=== PATIENT | female | born 1970 | race Caucasian/White ===

== ENCOUNTER 2017-07-10 00:03 | Inpatient (IN) | payer OTHER ==
[~2017-07-10] VITALS: Ht 161.2 cm; Wt 90.3 kg
[2017-07-10] VITALS (27 sets, daily range): BP systolic 70–127; BP diastolic 43–80; PULSE 53–112; RESP 14–22; O2SAT 92–100
[2017-07-10] MEDS ORDERED: Polyethylene Glycol (PEG) 17 Gm Powder PO PRN (01:20)
[2017-07-10] MEDS ORDERED: Alum-Mag Hydrox-Simeth 30 mL Suspension PO PRN (01:20)
[2017-07-10] MEDS ORDERED: Ondansetron 2 mg/mL 2 mL Inj IVPUSH PRN ×2 (01:20→08:10)
[2017-07-10] MEDS ORDERED: OXYC1TAB24 PO (01:25)
[2017-07-10] MEDS: 0.9% Sodium Chloride 1,000 ML IV SCH ×3 (01:31→21:19)
[2017-07-10 01:51] LABS: EOSINOPHILS % (AUTO) 0 % (0-5); Mean Corpuscular Hemoglobin 25.4 pg (27.0-35.0); Mean Corpuscular Volume 79.2 fL (81-100); Platelet Count 198 bil/L (150-400)
[2017-07-10 02:01] LABS: APPEARANCE,URINE SLIGHTLY CLOUDY (CLEAR,HAZY); COLOR,URINE DARK YELLOW (YELLOW)
[2017-07-10 02:03] LABS: OCCULT BLOOD,URINE MODERATE (NEGATIVE)
[2017-07-10 02:10] LABS: BASOPHILS % (AUTO) 0 % (0-3); MONOCYTES % (AUTO) 2 % (4-12); NEUTROPHILS % (AUTO) 92 % (40-74)
[2017-07-10 02:20] LABS: Magnesium 1.4 mg/dL (1.6-2.6)
--- NOTE | 2017-07-10 02:42 | PCM.HPMED ---
Subjective Date of Service Jul 10, 2017 Primary Provider: Admitting Physician: Adrian Bergman MD Primary Care Physician: Garrison Carpenter MD Attending Physician: Adrian Bergman MD Admit Status: Direct Admit, Full Admit Chief Complaint: Pyelonephritis. . History of Present Illness: Lynn Agudelo is a 47-year-old female with a past medical history significant for chronic back pain with opiate habituation and recurrent UTIs who is a direct admit from [facility] for pyelonephritis. The patient reports that for the last 2 days she has been experiencing fever, chills , and rigors. She also felt slightly nauseated today but denies emesis. She denies vision changes, congestion, sore throat, cough, chest pain, shortness of breath, vomiting, dysuria, diarrhea or constipation. She does endorse minor headache that has resolved, urinary hesitancy, and lower quadrant abdominal pain L> R. She reports that she has had recurrent UTIs with at least 2 a year up until 2-3 years ago. She had seen a urologist many years ago and had a voiding cystogram that did not reveal any anatomical abnormality to explain recurrent UTIs. Vital signs upon arrival: Temperature 36.5. Pulse 53. Respiratory rate 14. Blood pressure 96/54. Pulse ox 100% on room air. PCP is Dr. Garrison Carpenter. . Review of Systems: A comprehensive review of systems was conducted with the patient and found to be negative except as above in the History of Present Illness. . Allergies Coded Allergies: No Known Allergies (Unverified , 07/10/17) Home Medications Oxycodone 5 mg 1-2 tabs every 6 hours as needed for back pain. . PMH 1. Recurrent UTIs. 2. Bartholin's cyst. 3. Recently diagnosed nephrolithiasis. 4. Chronic back pain with opiate habituation. 5. Uterine fibroid evident on CT scan. 6. Recently diagnosed bacterial vaginosis. 7. Tobacco use disorder. . Surgical History 1. Liposuction with tummy tuck. . Family History Mother with hypertension, diabetes mellitus type II, and hypothyroidism. Brother with hypothyroidism. . Social History Hx Alcohol Use: No Hx Substance Use: No Hx Tobacco Use: Yes Smoking Status: Current Every Day Smoker (1 PPD 30+ years) Additional Information The patient is . She has no children. She was born in [facility] and raised in [place]. She is currently unemployed and on [employer]. She formerly worked as an insurance biller. . Exam Vital Signs Vital Sign - Last Date Time Temp Pulse Resp B/P Pulse Ox O2 Delivery O2 Flow Rate FiO2 07/10/17 01:10 36.5 53 14 96/54 100 Room Air Exam General: Middle-aged female lying in bed and in no acute distress, well- developed, well-nourished, appropriately interactive HEENT: Normocephalic, atraumatic. External ears without defect. Pupils equal, round, and reactive to light. Anicteric sclerae, moist conjunctivae, and no lid lag. Oropharynx free of erythema and cobble stoning with moist mucosa. Neck: Supple with full range of motion. No jugular venous distension. No bruits. No lymphadenopathy or thyromegaly. Cardiovascular: Regular rate and rhythm without murmurs, rubs, or gallops appreciated. Pulmonary: Clear to auscultation bilaterally without crackles, wheezes, or rhonchi. Normal respiratory effort with no use of accessory muscles. Abdomen: Soft, obese, mild tenderness to palpation in bilateral lower quadrants and suprapubic area, nondistended, bowel sounds present. Mild flank tenderness. No CVA tenderness. No hepatosplenomegaly or masses appreciated. Extremities: No clubbing, cyanosis, or edema. Skin: Normal temperature, turgor, and texture; no rash, ulcers, or subcutaneous nodules appreciated. Neurological: Cranial nerves grossly intact. Normal muscle strength, tone, and bulk. Reflexes, coordination, and sensory function within normal limits. No known gait impairment. Psychiatric: Normal mood and affect. Alert and oriented to person, place, and time. . Lab and Diagnostics Labs [facility] lab workup: WBC 15.7 Hemoglobin 12.8 Hematocrit 38.8 Platelets 254 PMNs 70% Glucose 106 BUN 12 Creatinine 1.3 GFR 46.4 Sodium 136 Potassium 3.4 Chloride 103 Carbon dioxide 21 Calcium 8.5 Total protein 6.5 Albumin 2.8 Total bilirubin 0.4 Alkaline phosphatase 78 AST 15 ALT 16 Procalcitonin and 3.1 Lactic acid 1.7 Urinalysis: nitrate negative, blood 2+, leukocyte esterase positive, RBCs 10-25 , WBCs 25-50, epithelial cells 10-15, urine bacteria many, Trichomonas present, culture indicated. . X-Rays, CTs and MRIs CT abdomen and pelvis with contrast performed at [facility]: 1. Partially obstructed pyelonephritis in the left renal upper pole. An 8 mm calculus is at the left upper pole uteropelvic junction. 2. 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 Distal extent of the duplication is not seen. 3. Focal 3 cm area of cortical hypodensity suspicious for renal phlegmon or renal abscess. 4. Enlarged, lobulated fibroid uterus. 5. Mildly enlarged ovaries with multicystic appearance to the right ovary. Further evaluation with pelvic ultrasound is recommended once the patient's acute illness has resolved. 6. Compressed urinary bladder with a diffusely thickened wall consistent with known history of cystitis. 7. Nonenhancing left labial fluid collection correlate with physical exam. Dictated by: Romina Ortega M.D. at 1999 07/09/2017 XR chest 2 view performed at [facility]: 1. Atelectasis and/or scarring left lateral lower lung. Underlying infection less likely but not entirely excluded. Correlate with auscultated findings. Dictated by: Romina Ortega M.D. at 0536 07/09/2017 . Assessment & Plan Lynn Agudelo is a 47-year-old female with a past medical history significant for chronic back pain with opiate habituation and recurrent UTIs who is a direct admit from [facility] for pyelonephritis. 1. Acute severe sepsis due to pyelonephritis with possible phlegmon secondary to nephrolithiasis, present on admission. Active. - Patient presented with fever, chills, rigors and nausea with leukocytosis with bandemia, lactic acidosis and mildly hypotensive. - Early goal-directed therapy met including: Broad-spectrum IV antibiotics and early fluid resuscitation. - Initial lactic acid at [facility] was normal at 1.7. Repeat upon admission was 2.5. Continue repeat lactic acid and total under 2.0. - Hypotension is fluid responsive. 2. Acute pyelonephritis with possible phlegmon secondary to nephrolithiasis, present on admission. Active. - Patient presented with fever, chills, rigors and nausea with leukocytosis and mildly hypotensive. - CT abdomen and pelvis with contrast performed at [facility] demonstrated partially obstructed pyelonephritis in the left renal upper pole with an 8 mm calculus is at the left upper pole uteropelvic junction, duplicated left intrarenal collecting system and proximal to mid left ureter. Distal extent of the duplication is not seen and focal 3 cm area of cortical hypodensity suspicious for renal phlegmon or renal abscess, as above. - The patient received 2 L of NS at [facility]. Ordered an additional 1 L NS bolus and will continue IV fluid hydration with NS at 100 mL/hr. - Initial lactic acid normal at 1.7 at [facility]. - Initial Pro calcitonin 3.1 at [facility]. Continue to trend. - Ordered oxycodone 5-325 mg 1-2 tabs every 6 hours as needed for pain. - Ordered blood cultures 2 and urine culture, pending. Obtain blood and urine cultures from [facility] once they are resulted. - The patient received levofloxacin, metronidazole, and ceftriaxone at [facility]. Continue ceftriaxone 2 g every 24 hours and metronidazole PO 500 mg twice a day 7 days. - Dr. Kaur of urology has been consulted and will plan to see the patient tomorrow morning. 3. Acute kidney injury on chronic kidney disease, present on admission. Active. - Unclear patient's baseline creatinine. Initial creatinine 1.3 at [facility]. - Avoid nephrotoxins. - Ordered IV fluid hydration with NS at 100 mL/hr. 4. Acute bacterial vaginosis, present on admission. Active. - Patient received metronidazole at [facility]. Continue metronidazole PO 500 mg twice a day 7 days. Chronic problems: 5. Chronic back pain with opiate habituation, present on admission. Stable. - Continue oxycodone 5-325 mg 1-2 tabs every 6 hours as needed for pain. 6. Tobacco use disorder, presently on admission. Stable. - Counseled the patient on smoking cessation. - Provided the patient a nicotine patch PRN for nicotine withdrawal. PRN antiemetics: Zofran and Maalox. PRN bowel regimen: Senna and MiraLAX. PRN analgesics: Tylenol and oxycodone. Patient is admitted under inpatient status with expected length of stay greater than 2 midnights due to severity of presenting symptoms, risk of adverse event, and complexity of treatment plan. . VTE Prophylaxis: Sub-Q Heparin (Unfractionated) Resuscitation Status: CPR: Attempt Resuscitation Attending Statement The patient was seen and examined together with Dr. Hendrickson on 07/10 and I agree with the history, exam and plan as outlined in the note above. Lisa Hendrickson DO Jul 10, 2017 01:14 Adrian Bergman MD Jul 10, 2017 03:16
[2017-07-10] MEDS ORDERED: 0.9% Sodium Chloride 1,000 ML IV ONE ×2 (02:50→05:05)
[2017-07-10] MEDS: cefTRIAXone Inj 2,000 MG in Dextrose 5% Minibag Plus 50 ML IV SCH (03:22)
[2017-07-10] MEDS ORDERED: Magnesium Sulf 2 Gm/50mL Water 2 GM in IV Premix 1 EACH IV ONE (05:05)
[2017-07-10] MEDS: oxyCODONE-Acetamin 5-325 mg Tablet PO PRN ×3 (05:08→21:00)
[2017-07-10] MEDS: Heparin 5,000 Unit/mL Inj SUBQ SCH ×2 (07:54→16:30)
[2017-07-10] MEDS ORDERED: Ondansetron 2 mg/mL 2 mL Inj ONE (08:00)
[2017-07-10] MEDS ORDERED: Dexamethasone 4 mg/mL Inj ONE (08:00)
[2017-07-10] MEDS ORDERED: Propofol 10,000 mCg/mL 20 mL Inj ONE (08:00)
[2017-07-10] MEDS ORDERED: Phenylephrine/NS 100 mCg/mL 10 mL Syringe IVPUSH ONE (08:00)
[2017-07-10] MEDS ORDERED: Labetalol 5 mg/mL 4 mL Inj IV PRN (08:10)
[2017-07-10] MEDS ORDERED: Lactated Ringer's 500 ML IV PRN (08:10)
[2017-07-10] MEDS ORDERED: hydrALAZINE 20 mg/mL Inj IVPUSH PRN (08:10)
[2017-07-10] MEDS ORDERED: Dexamethasone 4 mg/mL Inj IVPUSH PRN (08:10)
[2017-07-10] MEDS ORDERED: MetoCLOpramide 5 mg/mL 2 mL Inj IVPUSH PRN (08:10)
[2017-07-10] MEDS ORDERED: HYDROmorphone 1 mg/mL Inj IVPUSH PRN (08:10)
[2017-07-10] MEDS ORDERED: Lactated Ringer's 1,000 ML IV SCH (08:10)
[2017-07-10] MEDS ORDERED: fentaNYL-PF 50 mCg/mL 2 mL Inj IVPUSH PRN (08:10)
--- NOTE | 2017-07-10 08:53 | PCM.PNSURG ---
Subjective Date of Service: Jul 10, 2017 Date of Service: Jul 10, 2017 Visit Information: Reason for Visit Sepsis/Pyelonephritis Surgery/Surgery Date Post-Op Day # Date of Admission: Jul 10, 2017 at 01:11 Hospital Day # Objective Vital Sign- Last 8 Hours Date Time Temp Pulse Resp B/P Pulse Ox O2 Delivery O2 Flow Rate FiO2 07/10/17 07:44 37.7 85 18 101/64 98 Room Air 07/10/17 06:10 37.1 86 14 93/52 99 Room Air 07/10/17 04:53 79 07/10/17 03:16 85 90/51 07/10/17 02:42 37.0 81 16 81/57 99 Room Air 07/10/17 01:10 36.5 53 14 96/54 100 Room Air Intake and Output- Last 8 Hour 07/10/17 Cumulative From/Thru 07:00 07/10/17 01:48 - 07/10/17 06:59 Intake Total 2181 ml 2181 ml Output Total 570 ml 570 ml Balance 1611 ml 1611 ml Intake Oral 100 ml 100 ml IV Total 2081 ml 2081 ml Output Urine Total 470 ml 470 ml Stool Total 100 ml 100 ml Result Diagram: 07/10/17 0140 07/10/17 0140 Assessment & Plan Plan Pt imaging report reviewed- actual images unavailable to view at present, radiology working on this. History, PE and relevant labs reviewed. Discussed plan with patient. will plan to take to OR later today for L JJ stent placement UTI/Pyelo medical management per hospitalist service. after stent placement would not treat stone until at least 7-10 days to allow for passive ureteral dilation and after bacteriuria/pyelonephritis treated. Most likely this will be outpatient procedure and we will arrange f/u prior to patient d/c. Patient understands the plan and the rationale Full consult note to follow thank you for allowing us to participate in this patient's care VTE Prophylaxis: Sub-Q Heparin (Unfractionated) Resuscitation Status: CPR: Attempt Resuscitation Spring Kaur MD Jul 10, 2017 08:53
[2017-07-10] MEDS ORDERED: Albuterol-Ipratropium 3 mL Inhalation Solution NEB PRN (10:15)
[2017-07-10] MEDS ORDERED: Acetaminophen IV 1,000 MG in IV Premix 1 EACH IV ONE (10:20)
--- NOTE | 2017-07-10 10:40 | NUR ---
fever/rigors Pt developed fever 37.5 with shaking chills/rigors, mild back pain. HR 140 RR 36, States feeling anxious. Pt unable to swollow PO tylenol at this time. IV tylenol and 1 mg IV dilaudid given, RT here and given neb to help with breathing. Pt states starting to feel better, more calm, now resting quietly with HR 100-107 and RR 24.
--- NOTE | 2017-07-10 15:00 | NUR ---
To OR pt alert and oriented, planned for urology procedure. pt transported via gurney. . mathematics technician informed of departure. pt departed unit at 1500.
--- NOTE | 2017-07-10 15:14 | NUR ---
Social Work Note: Initial Assessment Data& Assessment: EMR Reviewed. SERVICES MANAGER met with pt at bedside to discuss discharge Planning, SW role explained. Discharge Planning Checklist provided. Lynn Agudelo is a 47 year old female admitted on 07/10/2017 for sepsis/pyelonephritis. Per MD, the medical team is ruling out potential stent placement. No MD orders identified at this time. Pt has [employer] insurance coverage and sees Garrison Cardoza MD for primary care. Pt lives in [place] and is independent at baseline with ADL's. MD does not identify any concerns with pt capacity for self care at this time. Pt does not use any DME at baseline and does not have HH or SNF hx. Pt does not have LTC insurance or VA benefits. Pt provided with DPOA/AD paperwork to review and complete when possible. Pt denies any needs at this time. SERVICES MANAGER to follow for MD orders or pt needs if they arise. Plan: Anticipated discharge home via POV when medically ready. Pt denies any needs at this time. SERVICES MANAGER to follow for MD orders or pt needs if they arise. ELEANOR Salazar Addendum: 07/10/17 at 1518 by RICKY VAN Amended: Links added.
[2017-07-10] MEDS ORDERED: Lactated Ringer's 1,000 ML IV ONE ×2 (15:18→16:30)
--- NOTE | 2017-07-10 15:57 | PCM.HPANE ---
Patient Data Date of Service: Jul 10, 2017 Surgeon Admitting Provider:Adrian Bergman MD Attending Provider:Jojo Lamar DO Primary Care Physician:Garrison Carpenter MD Other Provider: Reason for Visit Sepsis/Pyelonephritis Ht/WT & BMI Height (Feet): 5 Height (Inches): 3.45 Weight (Kilograms): 81.600 Body Mass Index 31.48 Allergies Coded Allergies: No Known Allergies (Unverified , 07/10/17) Past Anesthesia History Anesthesia History: Denies:: Anesthesia Reactions Diabetes History Hx Diabetes?: No MRSA MRSA: No Medications Home Meds Incl Beta Mata: No Reported Medications oxyCODONE-Acetaminophen 5-325 mg 1 Each Tablet1-2 Tab PO Q6H PRN For Pain Ref 0 07/10/17 History History of ENT Problems?: No HEENT History: Denies:: Abnormal Airway Cataracts Difficult Intubation Dysphagia Glaucoma Hearing Problem Sinus Problem TMJ Denture Type: None Teeth Condition: Within Normal Limits Hx of Heart Problems?: No Cardiovascular History: Denies:: AICD Abdominal Aortic Aneurism Atrial Fibrillation Cardiac Surgery Chest Pain Congestive Heart Failure Coronary Artery Disease Edema Heart Murmur Hypertension Irregular Heartbeat Pacemaker Peripheral Vascular Rheumatic Fever Thrombophlebitis Valvular Heart Disease Hx of Respiratory Problem?: No Respiratory History: Denies:: Asthma COPD Chest Surgery Cough Dyspnea Emphysema Hemoptysis Oxygen Administration Pneumonia Pulmonary Embolism Tuberculosis Use of C-PAP Machine Use of Inhalers / NEBS Hx Neurologic Problems?: No Neurological History: Positive for:: Seizures (once at age 6 after traumatic neck injury) Hx of GI Problems?: No Hx of Problems?: Yes Genitourinary History: Positive for:: Urinary Tract Infection (chronic UTIs until 30's) Female Hx: Denies:: Currently Endometriosis Pelvic Inflammatory Problems with Breasts? Hx Musculoskeletal Problems?: Yes Musculoskeletal History: Positive for:: Back Injury (work injury ) Musculoskeletal Trauma (L ankle ORIF and bilat radial hairline fx ) Denies:: Joint Replacement Hx of Psycho/Social Problems?: No Hx Surgeries?: Yes (lipo/tummy tuck at age 25) Hx Any Other Health Problems?: No Other History: Denies:: Cancer Hospitalization Thyroid Disease History Blood Transfusions: Positive for:: Accept Blood Products? Blood Transfusions Denies:: Blood Transfuse Reaction Hx Diabetes: No Hx Alcohol Use: NoAlcoholic Drinks Per Day: 0Hx Substance Use: No Smoking Status: Current Every Day Smoker (1 PPD 30+ years) Have You Smoked inLast 12 mo: YesApprox How Many Cigarettes/day: 20 Stop/Bang Treated for Sleep Apnea?: No Do You Have a CPAP Machine?: No S-Snoring: Do You Snore Loudly: Yes T-Tired: feel tired, fatigued: Yes O-Obsered: Observed not breath: Yes P-Blood Pressure: treated: Yes B- Body Mass Index > 35 kg/m2: Yes A- Age over 50: No N- Neck Large Circumference: No G- Gender Male: No ISIDORO Total Score: 6 ISIDORO Risk Assessment: High Risk, =/>3 Yes ISIDORO Category 1: Yes Risk Assessment Category Category 1A: Patient has history of documented sleep apnea, and HAS NOT received any narcotic, sedative or anesthesia administration during this stay. Category 1B: Patient has history of documented sleep apnea, and HAS received any narcotic , sedative or anesthesia administration during this stay Category 2: Patient has SUSPECTED Obstructive Sleep Apnea, and HAS received any narcotic , sedative or anesthesia administration during this stay. Category 3: Patient has SUSPECTED Obstructive Sleep Apnea and HAS NOT received narcotic, sedative or anesthesia administration during this stay. Category 4: Outpatient in Procedural Areas with known sleep apnea or who screen positive for High Risk via the STOP/BANG questionnaire. Exam Exam Vital Signs Vital Signs Date Time Temp Pulse Resp B/P Pulse Ox O2 Delivery O2 Flow Rate FiO2 07/10/17 11:50 106/63 07/10/17 11:46 37.1 07/10/17 11:16 39.5 112 18 127/80 92 Room Air General Appearance: Alert, Oriented X3, Cooperative, No Acute Distress HEENT/AIRWAY: MP 2 Lungs: Clear to Auscultation, Normal Air Movement Heart: Exam Unremarkable, Regular Rate/Rhythm, No Murmurs/Rubs/Gallops Meds/Labs/Diagnostics Admission Meds Current Medications Heparin Sodium (Porcine) 5000 unit 5,000 unit Q8 SUBQ Last administered on 07/10 07:54; Start 07/10/17 at 08:30 Sodium Chloride (Normal Saline) 1,000 ml @ 100 mls/hr Q10H IV Last administered on 07/10/17 01:31; Start 07/10/17 at 01:18 Metronidazole HCl 500 mg 500 mg Q12 PO Last administered on 07/10/17 07:53; Start 07/10/17 at 08:30 Ceftriaxone Sodium 2000 mg/ Dextrose/Water 50 ml @ 100 mls/hr Q24H IV Last administered on 07/10/17 03:22; Start 07/10/17 at 02:30 Sodium Chloride (Normal Saline) 1,000 ml @ 0 mls/hr Q0M ONCE IV Last administered on 07/10/17 02:51; Start 07/10/17 at 02:50; Stop 07/10/17 at 02:54 ; Status DC Nicotine 1 patch 1 patch DAILY TOPICAL Last administered on 07/10/17 07:54; Start 07/10/17 at 03:00 Sodium Chloride 1,000 ml @ 0 mls/hr Q0M ONCE IV Last administered on 05:07; Start 07/10/17 at 05:05; Stop 07/10/17 at 05:07; Status DC Magnesium Sulfate 2 gm/Premix 50 ml @ 50 mls/hr ONCE ONCE IV Last administered on 07/10/17 05:30; Start 07/10/17 at 05:05; Stop 07/10/17 at 06:04 ; Status DC Lactated Ringer's 1,000 ml @ 120 mls/hr Q8H20M IV Last administered on 13:28; Start 07/10/17 at 08:10; Stop 07/10/17 at 16:09 Acetaminophen 1000 mg/Premix 100 ml @ 400 mls/hr ONCE ONCE IV Last administered on 07/10/17 10:34; Start 07/10/17 at 10:20; Stop 07/10/17 at 10:34 ; Status DC Lactated Ringer's (Lr) 1,000 ml @ ud STK-MED ONCE IV Last administered on 07/10 15:18; Start 07/10/17 at 15:18; Stop 07/10/17 at 15:41; Status DC Labs Test 07/10/17 01:40 07/10/17 07:26 White Blood Count 13.7th/mm3 (3.8-10.1) Red Blood Count 4.48mil/mm3 (3.90-5.20) Hemoglobin 11.4g/dL (12.0-15.6) Hematocrit 35.5% (35.0-46.0) Mean Corpuscular Volume 79.2fL (81-100) Mean Corpuscular Hemoglobin 25.4pg (27.0-35.0) Mean Corpuscular Hemoglobin Concent 32.1% (32.0-37.0) Red Cell Distribution Width 15.7% (12.3-15.4) Platelet Count 198bil/L (150-400) Neutrophils (%) (Auto) 92% (40-74) Lymphocytes (%) (Auto) 2% (14-46) Monocytes (%) (Auto) 2% (4-12) Eosinophils (%) (Auto) 0% (0-5) Basophils (%) (Auto) 0% (0-3) Band Neutrophils % 4% (1-5) Hematology Comments Urine Color Dark yellow (YELLOW) Urine Appearance Slightly cloudy Urine pH 5.0 (5.0-8.0) Urine Specific [place] >1.050 (1.003-1.035) Urine Protein Tracemg/dL (NEG,TRACE) Urine Glucose (UA) Negativemg/dL (NEGATIVE) Urine Ketones Negativemg/dL (NEGATIVE) Urine Occult Blood Moderate (NEGATIVE) Urine Nitrite Negative (NEGATIVE) Urine Bilirubin Negative (NEGATIVE) Urine Urobilinogen 1.0mg/dL (NORMAL) Urine Leukocyte Esterase Negative (NEGATIVE) Urine RBC 0-2/hpf (0-2) Urine WBC >50/hpf (0-5) Urine Epithelial Cells Moderate/hpf (NONE-MOD) Urine Crystals None seen (NONE SEEN) Urine Bacteria Few/hpf (NONE-FEW) Urine Hyaline Casts None/lpf (NONE) Urine Granular Casts None seen (NONE SEEN) Urine Waxy Casts None seen (NONE SEEN) Urine Red Blood Cell Casts None seen (NONE SEEN) Urine White Blood Cell Casts None seen (NONE SEEN) Urine Mucus None seen (None Seen) Urine Trichomonas None seen (NONE SEEN) Urine Yeast None (NONE SEEN) Urinalysis Comment None Urine Culture Reflexed Indicated Sodium Level 136mEq/L (134-144) Potassium Level 3.8mEq/L (3.5-5.2) Chloride Level 103mEq/L (97-108) Carbon Dioxide Level 19mmol/L (18-29) Blood Urea Nitrogen 11mg/dL (6-24) Creatinine 1.19mg/dL (0.57-1.00) Estimat Glomerular Filtration Rate 69mL/min (>59) Glucose Level 110mg/dL (60-99) Calcium Level 8.0mg/dL (8.5-10.1) Magnesium Level 1.4mg/dL (1.6-2.6) Total Bilirubin 0.3mg/dL (0.0-1.2) Aspartate Amino Transf (AST/SGOT) 16U/L (0-50) Alanine Aminotransferase (ALT/SGPT) 13U/L (0-32) Alkaline Phosphatase 72U/L (25-150) Total Protein 6.0g/dL (6.4-8.4) Albumin 2.9g/dL (3.4-5.0) Procalcitonin 1.81ng/mL (0.00-0.08) Hold Bueno Top Tube Received (Received) Lactic Acid Level 2.6mmol/L (0.4-2.0) Plan Impression Patient chart reviewed, patient interviewed and anesthestic plan with risks, benefits, and alternatives discussed, and informed consent obtained. NPO per Anesth. Guidelines: Yes ASA Physical Status: ASA2 Mod Systemic Disease Anesthetic Plan: GA Bene/Risks/Altern/Consents: Yes HP Complete Prior to Induction: Yes Carter Silveira MD Jul 10, 2017 15:57
--- NOTE | 2017-07-10 16:04 | PCM.SURGPO ---
Immediate Operative Note Date of Surgery: Jul 10, 2017 Pre Operative Diagnosis upper pole obstructed pyelonephritis with stone Post Operative Diagnosis same Procedure L RPG, L JJ stent placement (upper pole moeity) Surgeon and Unit Reactor Operator Surgeon: Vincent Assistants: None Findings partial ureteral dulication with obstructed upper pole moeity Purulent drainage post de-obstruction 6x26cm JJ stent in place no string U culture sent post deobstruction Complications There were no periprocedural complications identified. Surgical Specimen Removed: No Specimen sent to Pathology: No Anesthetic Administered: GA Grafts, Implants: Implants-See Implant Record Output, Estimated Blood Loss: 3 Blood Admin during surgery: No Spring Kaur MD Jul 10, 2017 16:04
--- NOTE | 2017-07-10 16:06 | PCM.PNMED ---
Subjective Date of Service Jul 10, 2017 Subjective Lynn Agudelo is a 47-year-old female with a past medical history significant for chronic back pain with opiate habituation and recurrent UTIs who is a direct admit from [facility] for pyelonephritis. Nursing reports patient had no acute events overnight. Patient seen and examined. Sitting up in bed comfortably. C/o mild chills, mild lower ABD pain, and nausea. Denies any CP, SOB, Vomiting, Diarrhea, or Headaches. Has had some urine output since admission, and has had a bowel movement in the last 24 hours. ROS reviewed and is otherwise negative unless noted above. @ roughly 1040, patient began to actively have chills and rigors. Temperature reached a max of 39.5. Lower ABD pain continued. Patient was given 1g of Acetaminophen IV with resolution of fever. Exam Vital Signs Vital Sign - Last Date Time Temp Pulse Resp B/P Pulse Ox O2 Delivery O2 Flow Rate FiO2 07/10/17 11:50 106/63 07/10/17 11:46 37.1 07/10/17 11:16 112 18 92 Room Air Intake and Output 07/09/17 07/09/17 07/10/17 Cumulative From/Thru 15:00 23:00 07:00 07/10/17 01:48 - 07/10/17 06:59 Intake Total 2181 ml 2181 ml Output Total 570 ml 570 ml Balance 1611 ml 1611 ml Intake Oral 100 ml 100 ml IV Total 2081 ml 2081 ml Output Urine Total 470 ml 470 ml Stool Total 100 ml 100 ml Exam Constitutional: Awake and Alert and Oriented x4. No acute distress. Head: normocephalic and atraumatic. Eyes: EOMI. [place] conjunctiva. Pupils equal round and reactive to light. Heart: Regular rate and rhythm. No murmur. No peripheral edema. Lungs: Clear to auscultation. No wheeze. rales or rhonchi. ABD: soft. diffuse lower ABD tenderness and suprapubic tenderness. Bowel sounds present throughout. Musculoskeletal: moves all four extremities appropriately. Skin: warm, diaphoretic, no rash. Neuro: CN II-XII intact. no focal deficits. Psych: anxious, but appropriate mood and affect. IVs and Medications IV Fluids 1L NS in the last 24 hours. Medications Reviewed: Medications were reviewed in detail Medications High Risk IV Medications: Ceftriaxone Lab and Diagnostics Item Value Date Time Red Blood Count 4.48 mil/mm3 07/10/17139 Mean Corpuscular Volume 79.2 fL L 07/10/17139 Mean Corpuscular Hemoglobin 25.4 pg L 07/10/17139 Mean Corpuscular Hemoglobin Concent 32.1 % 07/10/17139 Red Cell Distribution Width 15.7 % H 07/10/17 014 Neutrophils (%) (Auto) 92 % H 07/10/17139 Lymphocytes (%) (Auto) 2 % L 07/10/17139 Monocytes (%) (Auto) 2 % L 07/10/17139 Eosinophils (%) (Auto) 0 % 07/10/17139 Basophils (%) (Auto) 0 % 07/10/17139 Band Neutrophils % 4 % 07/10/17139 Lactic Acid Level 2.5 mmol/L H 07/10/17139 Lactic Acid Level 2.3 mmol/L H 07/10/17 0510 Lactic Acid Level 2.6 mmol/L H 07/10/17 0726 Procalcitonin 1.81 ng/mL H 07/10/17139 Estimat Glomerular Filtration Rate 69 mL/min 07/10/17139 Calcium Level 8.0 mg/dL L 07/10/17139 Magnesium Level 1.4 mg/dL L 07/10/17139 Aspartate Amino Transf (AST/SGOT) 16 U/L 07/10/17 014 Total Bilirubin 0.3 mg/dL 07/10/17139 Alanine Aminotransferase (ALT/SGPT) 13 U/L 07/10/17139 Alkaline Phosphatase 72 U/L 07/10/17139 Total Protein 6.0 g/dL L 07/10/17139 Albumin 2.9 g/dL L 07/10/17139 Result Diagram: 07/10/1713907/10/17139 Microbiology Blood Cultures pending X-Rays, CTs and MRIs CT abdomen and pelvis with contrast performed at [facility]: 1. Partially obstructed pyelonephritis in the left renal upper pole. An 8 mm calculus is at the left upper pole uteropelvic junction. 2. 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 Distal extent of the duplication is not seen. 3. Focal 3 cm area of cortical hypodensity suspicious for renal phlegmon or renal abscess. 4. Enlarged, lobulated fibroid uterus. 5. Mildly enlarged ovaries with multicystic appearance to the right ovary. Further evaluation with pelvic ultrasound is recommended once the patient's acute illness has resolved. 6. Compressed urinary bladder with a diffusely thickened wall consistent with known history of cystitis. 7. Nonenhancing left labial fluid collection correlate with physical exam. Dictated by: Romina Ortega M.D. at 2308 07/09/2017 XR chest 2 view performed at [facility]: 1. Atelectasis and/or scarring left lateral lower lung. Underlying infection less likely but not entirely excluded. Correlate with auscultated findings. Dictated by: Romina Ortega M.D. at 1250 07/09/2017 . Assessment & Plan Lynn Agudelo is a 47-year-old female with a past medical history significant for chronic back pain with opiate habituation and recurrent UTIs who is a direct admit from [facility] for pyelonephritis. Acute severe sepsis due to pyelonephritis with possible phlegmon secondary to nephrolithiasis, present on admission. Active. - Patient presented with fever, chills, rigors and nausea with leukocytosis with bandemia, lactic acidosis and mildly hypotensive. - Early goal-directed therapy met including: Broad-spectrum IV antibiotics and early fluid resuscitation. - Initial lactic acid at [facility] was normal at 1.7. Most recent was 2.6 on 07/10 - Hypotension is fluid responsive. Continue IVF. - 250cc bolus PRN hypotension. Acute pyelonephritis with possible phlegmon secondary to nephrolithiasis, present on admission. Active. - Patient presented with fever, chills, rigors and nausea with leukocytosis and mildly hypotensive. 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 Distal extent of the duplication is not seen and focal 3 cm area of cortical hypodensity suspicious for renal phlegmon or renal abscess, as above. -continue IV fluid hydration with NS at 100 mL/hr. - Initial Pro calcitonin 3.1 at [facility]. Continue to trend. - Ordered oxycodone 5-325 mg 1-2 tabs every 6 hours as needed for pain. - Ordered blood cultures 2 and urine culture, pending. Obtain blood and urine cultures from [facility] once they are resulted. - Continue ceftriaxone 2 g every 24 hours and metronidazole PO 500 mg twice a day 7 days. - Dr. Kaur took patient to surgery for L JJ stent placement and plan for treatment of stone at least 7-10 days afterwards. Continue to treat bacteriuria /pyelonephritis. Acute kidney injury on chronic kidney disease, present on admission. Active. - Unclear patient's baseline creatinine. Initial creatinine 1.3 at [facility]. - Avoid nephrotoxins. - Ordered IV fluid hydration with NS at 100 mL/hr. Acute bacterial vaginosis, present on admission. Active. -Continue metronidazole PO 500 mg twice a day 7 days. Chronic problems: Chronic back pain with opiate habituation, present on admission. Stable. - Continue oxycodone 5-325 mg 1-2 tabs every 6 hours as needed for pain. Tobacco use disorder, presently on admission. Stable. - Counseled the patient on smoking cessation. - Continue nicotine patch PRN for nicotine withdrawal. PRN antiemetics: Zofran and Maalox. PRN bowel regimen: Senna and MiraLAX. PRN analgesics: Tylenol and oxycodone. Disposition: Patient is currently being treated for pyelonephritis and is post op day 0 for a ureter stent placement. Patient's blood pressure is being controlled with IVF to prevent hypotensive shock secondary to infection. Length of stay is uncertain at this time. VTE Prophylaxis: Sub-Q Heparin (Unfractionated) Resuscitation Status: CPR: Attempt Resuscitation Attending Statement The patient was seen and examined together with Dr. Carolina on 07/10/17 and I agree with the history, exam and plan as outlined in the note above. Derick Carolina DO Jul 10, 2017 16:06 Jojo Lamar DO Jul 11, 2017 17:34
[2017-07-10] MEDS ORDERED: Phenylephrine/NS-PF 100 mCg/mL 5 mL Syringe IVPUSH ONE (16:07)
[2017-07-10] MEDS: Phenylephrine 10,000 mCg/mL Inj IVPUSH PRN ×4 (16:09→16:50)
[2017-07-10] MEDS ORDERED: EPHEDrine Sulfate 50 mg/mL Inj ONE (16:20)
--- NOTE | 2017-07-10 16:20 | PCM.ANEP1 ---
Post Anesthesia PACU Phase 1 Assessment Vital Signs Vital Signs Date Time Temp Pulse Resp B/P Pulse Ox O2 Delivery O2 Flow Rate FiO2 07/10/17 11:50 106/63 07/10/17 11:46 37.1 07/10/17 11:16 39.5 112 18 127/80 92 Room Air Anesthetic Administered: GA Level of Alertness: Awake, talking Pain: Yes Pain Scale Score: 2 Nausea or Vomiting: No CV Function & Hydration Stable: Yes Airway Device: Oxygen Delivery: Nasal Cannula Lungs: Clear to Auscultation, Normal Air Movement PACU Phase 2 Assessment Complications: No Follow up Care: No Patient Instructions Provided: N/A Carter Silveira MD Jul 10, 2017 16:20
[2017-07-10] MEDS: EPHEDrine Sulfate 50 mg/mL Inj IVPUSH PRN ×3 (16:25→16:43)
--- NOTE | 2017-07-10 17:28 | DRSVH ---
PROCEDURE: X-RAY RETROGRADE UROGRAPHY INDICATIONS: LEFT STENT PLACEMENT TECHNIQUE: 7 intra-operative images acquired by the Urology service. COMPARISON: [facility], CT, CT ABD PELVIS W CON, 07/09/2017, 22:26. FINDINGS: 7 submitted images demonstrate partial opacification of the renal collecting system which is duplicated. No hydronephrosis is seen. Visualized portions of the ureter appear grossly normal. No extravasation of contrast media. IMPRESSION: Duplicated left renal collecting system present and otherwise the visualized ureter appea rs normal. A ureteral stent was placed. Dictated by: Yosvany MILLER Interpreted: Pat Rasmussen MD on 07/10/2017 at 16:23 Approved by: Pat Rasmussen M.D. on 07/10/2017 at 17:27
--- NOTE | 2017-07-10 17:30 | NUR ---
Return to 2023 pt alert and oriented. sba from gurney to bed. telemetry replaced. IVF resumed. pt assisted to bsc. vss. call light in reach. care continues.
--- NOTE | 2017-07-10 17:39 | PCM.HPSURG ---
Subjective Referring Provider: Admitting Physician: Adrian Bergman MD Primary Care Physician: Garrison Carpenter MD Attending Physician: Jojo Lamar DO Chief Complaint Urology was asked by Dr Lamar for evaluation and treamtent recommendation regarding a 47 y/o woman with L upper pole ureteral obstruction (duplication) due to 8mm stone at [facility] with at least upper pole pyelonphritis and obstruction, Leukocytocis, fever, chills, History of Present Illness Pt is a 47 y/o woman admitted to hospitalist service overnight from [place] with Leukocytocis, fever to 102, shaking chills and CT remarkable for partially duplicated renal collecting system on L with upper pole moeity obstructed by an 8mm calculus with herogeneity of the L upper pole c/w pyelonephritis, and upper pole hydro (not lower.) WBC was 16 with 70%N and 20% Bands She recieved flagyl and Ceftriaxone at [facility] prior to transfer PT admitted after midnight on 07/10 on transfer and was katy with hypotension BP 96/54. She was put on Ceftriaxone with cultures pending. Outside CT images were reviewed Unfortunately patient was initially given solid diet and took in at least coffee with cream which delayed her stent placement by several hours. She did ultiamtely have L Upper pole JJ stent placed after 3pm 07/10 and there was white purulence which drained down readily after stent was placed. U Cx was sent post de-obstruction from the OR Allergy Allergies: Coded Allergies: No Known Allergies (Unverified , 07/10/17) Social History Hx Alcohol Use: No Alcoholic Drinks Per Day: 0 Hx Substance Use: No Hx Tobacco Use: Yes PMH HEENT History History of ENT Problems?: No HEENT History: Denies:: Abnormal Airway Cataracts Difficult Intubation Dysphagia Glaucoma Hearing Problem Sinus Problem TMJ Cardiovascular History History of Heart Problems?: No Cardiovascular History: Denies:: AICD Abdominal Aortic Aneurism Atrial Fibrillation Cardiac Surgery Chest Pain Congestive Heart Failure Coronary Artery Disease Edema Heart Murmur Hypertension Irregular Heartbeat Pacemaker Peripheral Vascular Rheumatic Fever Thrombophlebitis Valvular Heart Disease Respiratory History of Respiratory Problem: No Respiratory History: Denies:: Asthma COPD Chest Surgery Cough Dyspnea Emphysema Hemoptysis Oxygen Administration Pneumonia Pulmonary Embolism Tuberculosis Use of C-PAP Machine Use of Inhalers / NEBS Neurological History Hx Neurologic Problems?: No Neurological History: Positive for:: Seizures (once at age 6 after traumatic neck injury) Gastrointestinal History HX of GI Problems?: No Genitourinary History Hx of Gu Problems?: Yes Genitourinary History: Positive for: Urinary Tract Infection (chronic UTIs until 30's) Female/Male History Reproductive History Female: Denies: Currently ? Endometriosis Pelvic Inflammatory DX Problems with Breasts? Musculoskeletal History Hx Musculoskeletal Problems?: Yes Musculoskeletal History: Positive for:: Back Injury (work injury ) Musculoskeletal Trauma (L ankle ORIF and bilat radial hairline fx ) Denies:: Joint Replacement Psycho Social History Hx of Psycho/Social Problems?: No Other History Hx Any Other Health Problems?: No Other History: Denies:: Cancer Hospitalization Thyroid Disease Diabetes: No Social History Hx Alcohol Use: NoAlcoholic Drinks Per Day: 0Hx Substance Use: NoHx Tobacco Use: Yes Smoking Status: Current Every Day Smoker (1 PPD 30+ years) Review of Systems Constitutional: Reports: Chills, Fever, Malaise, Sweats, Weakness ENT: Reports: Dental Problems, Denies: Nasal Congestion Cardiovascular: Denies: Chest Pain, Orthopnea, Palpitations Respiratory: Denies: Cough, Hemoptysis, Sputum Gastrointestinal: Reports: Abdominal Pain, Change in Appetite, Nausea, Vomiting , Denies: Hematochezia, Melena Genitourinary: Reports: Change in Frequency, Dysuria, Hematuria, Nocturia Musculoskeletal: Reports: Back Pain, Denies: Redness, Swelling Skin: Denies: Bruising Neurological: Reports: Weakness, Denies: Numbness, Seizures Psychologic: Denies: Disorientation Endocrine: Reports: Change in Appitite, Diaphoresis, Denies: Intolerent to Heat/Cold H&P Surgical Exam Exam General: Alert, Oriented X3, Cooperative, No Acute Distress, Other (sleepy, uncomfortable breathing easy) Neck: Supple (midline trachea, no scars) Lungs: Normal Air Movement (normal air movement, no tachypnea, no audible ronchi or wheezes) Heart: Exam Unremarkable, Regular Rate/Rhythm, No Murmurs/Rubs/Gallops Abdomen: Soft (TTP deep no masses, no rebound, no peritoneal signs) Extremities: Warm Neuro: Grossly Neurologically Intact (clear speech, symmetric face, appropriate ) Catheters: None Lab & Micro Results: as above Assessment & Plan Assessment Pt is a 47 y/o woman admitted to hospitalist service overnight from [place] with Leukocytocis, fever to 102, shaking chills and CT remarkable for partially duplicated renal collecting system on L with upper pole moeity obstructed by an 8mm calculus with herogeneity of the L upper pole c/w pyelonephritis, and upper pole hydro (not lower.) WBC was 16 with 70%N and 20% Bands She recieved flagyl and Ceftriaxone at [facility] prior to transfer PT admitted after midnight on 07/10 on transfer and was katy with hypotension BP 96/54. She was put on Ceftriaxone with cultures pending. VTE Prophylaxis: Sub-Q Heparin (Unfractionated) Plan: Outside CT images were reviewed Unfortunately patient was initially given solid diet and took in at least coffee with cream the morning of 07/10 which delayed her stent placement by several hours. She did ultiamtely have L Upper pole JJ stent placed after 3pm 07/10 and there was white purulence which drained down readily after stent was placed. U Cx was sent post de-obstruction from the OR Will need further medical supportive care now that her obstruction is relieved would treat stone electively not before 7-10 days and once "UTI"/pyelonephritis has been treated anticipate this would be as outpatient procedure after discharge. will ensure pt has f/u if no appointment can be made prior to d/c (should she go home over the weekend ) she may call the office on Thursday to set up f/u. [facility] [phone] She is aware she will need elective stone treatment once she has been treated for her pyelo Would not anticipate need for further urological surgical intervention prior to patient's discharge home. Urologist canceling and cutting control clerk this weekend is Dr Peter (not part of [facility]) Questions about this or other patients over the weekend may be directed to our ( [facility]) Urology PA who is canceling and cutting control clerk over the weekend PAM Nevarez Resuscitation Status: CPR: Attempt Resuscitation Spring Kaur MD Jul 10, 2017 17:39
[2017-07-10] MEDS ORDERED: 0.9% Sodium Chloride 250 ML IV PRN (20:25)
--- NOTE | 2017-07-10 22:23 | NUR ---
Rec'd result for critical lactic acid 9.[address] Hendrickson notified at 1025, no new orders at this time, likely related surgery today. Addendum: 07/11/17 at 0234 by JONATAN VERGARA RN Repeat lactic acid critical at 6.3. Dr. Hendrickson notified, future lactic acids cancelled r/t post surgical status.
[2017-07-11] VITALS (8 sets, daily range): BP systolic 90–112; BP diastolic 56–76; PULSE 74–86; RESP 14–20; O2SAT 97–99
[2017-07-11] MEDS: Heparin 5,000 Unit/mL Inj SUBQ SCH ×3 (00:06→16:02)
[2017-07-11 01:59] LABS: EOSINOPHILS % (AUTO) 0 % (0-5); Mean Corpuscular Hemoglobin 25.8 pg (27.0-35.0); Mean Corpuscular Volume 78.8 fL (81-100); Platelet Count 160 bil/L (150-400)
[2017-07-11 02:19] LABS: BASOPHILS % (AUTO) 0 % (0-3); MONOCYTES % (AUTO) 1 % (4-12); NEUTROPHILS % (AUTO) 84 % (40-74)
[2017-07-11] MEDS: cefTRIAXone Inj 2,000 MG in Dextrose 5% Minibag Plus 50 ML IV SCH (02:33)
--- NOTE | 2017-07-11 05:40 | NUR ---
BP 90's systolic this shift, VSS. C/O moderate abdominal pain resolved with percocet x1. Afebrile but diaphoretic. Passing paul urine with jamin blood, some mucousy threads and small clots. Urine strained for stones, none observed.
[2017-07-11] MEDS: 0.9% Sodium Chloride 1,000 ML IV SCH ×2 (06:47→16:02)
[2017-07-11] MEDS: oxyCODONE-Acetamin 5-325 mg Tablet PO PRN ×2 (09:36→19:57)
--- NOTE | 2017-07-11 09:47 | PCM.PNMED ---
Subjective Date of Service Jul 11, 2017 Subjective Lynn Agudelo is a 47-year-old female with a past medical history significant for chronic back pain with opiate habituation and recurrent UTIs who is a direct admit from [facility] for pyelonephritis. Nursing reports blood pressures low, but not requiring fluid boluses or pressure support. Afebrile Patient seen and examined. Denies any CP, SOB, ABD pain, N/V/D, or Headache. Patient is making good urine, but reports hematuria. Has had a good bowel movement in the last 24 hours. ROS negative unless noted above. Exam Vital Signs Vital Sign - Last Date Time Temp Pulse Resp B/P Pulse Ox O2 Delivery O2 Flow Rate FiO2 07/11/17 09:27 36.5 75 16 90/63 99 Room Air 07/10/17 17:21 2 Intake and Output 07/10/17 07/10/17 07/11/17 Cumulative From/Thru 15:00 23:00 07:00 07/10/17 01:48 - 07/11/17 05:01 Intake Total 975 ml 2500 ml 1143 ml 6799 ml Output Total 250 ml 453 ml 1273 ml Balance 725 ml 2047 ml 1143 ml 5526 ml Intake Oral 200 ml 300 ml IV Total 975 ml 2300 ml 1143 ml 6499 ml Output Urine Total 250 ml 450 ml 1170 ml Stool Total 100 ml Estimated Blood Loss 3 ml 3 ml Exam Constitutional: awake, alert and oriented x4. No acute distress. Head: normocephalic and atraumatic Eyes: EOMI. No scleral icterus. Heart: regular rate and rhythm. No murmurs. No peripheral edema. Lungs: clear to auscultation. no wheeze, rales, or rhonchi ABD: mild lower abd tenderness. soft. bowel sounds present throughout. Musculoskeletal: moves all four extremities appropriately. Able to walk to bathroom without assistance Skin: warm, diaphoretic. No rash. Neuro: CN II-XII intact. No focal deficits. Psych: appropriate mood and affect. IVs and Medications IV Fluids 2L NS given in the last 24 hours. Medications Reviewed: Medications were reviewed in detail Medications High Risk IV Medications: Ceftriaxone Lab and Diagnostics Item Value Date Time Red Blood Count 4.00 mil/mm3 07/11/17 0155 Mean Corpuscular Volume 78.8 fL L 8/12/17 0155 Mean Corpuscular Hemoglobin 25.8 pg L 07/11/17154 Mean Corpuscular Hemoglobin Concent 32.7 % 07/11/17154 Red Cell Distribution Width 16.1 % H 07/11/17154 Neutrophils (%) (Auto) 84 % H 07/11/17154 Lymphocytes (%) (Auto) 4 % L 07/11/17154 Monocytes (%) (Auto) 1 % L 07/11/17154 Basophils (%) (Auto) 0 % 07/11/17154 Eosinophils (%) (Auto) 0 % 07/11/17154 Band Neutrophils % 11 % H 07/11/17154 Estimat Glomerular Filtration Rate 57 mL/min 07/11/17154 Calcium Level 8.1 mg/dL L 07/11/17154 Total Bilirubin 0.8 mg/dL 07/11/17154 Aspartate Amino Transf (AST/SGOT) 46 U/L 07/11/17154 Alanine Aminotransferase (ALT/SGPT) 31 U/L 07/11/17154 Alkaline Phosphatase 63 U/L 07/11/17154 Total Protein 5.2 g/dL L 07/11/17154 Albumin 2.4 g/dL L 07/11/17154 Procalcitonin 39.22 ng/mL H 07/11/17154 Result Diagram: 07/11/1715407/11/17154 Microbiology Blood Cultures no growth after 24 hours Urine cultures grew gram negative rods. X-Rays, CTs and MRIs CT abdomen and pelvis with contrast performed at [facility]: 1. Partially obstructed pyelonephritis in the left renal upper pole. An 8 mm calculus is at the left upper pole uteropelvic junction. 2. 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 Distal extent of the duplication is not seen. 3. Focal 3 cm area of cortical hypodensity suspicious for renal phlegmon or renal abscess. 4. Enlarged, lobulated fibroid uterus. 5. Mildly enlarged ovaries with multicystic appearance to the right ovary. Further evaluation with pelvic ultrasound is recommended once the patient's acute illness has resolved. 6. Compressed urinary bladder with a diffusely thickened wall consistent with known history of cystitis. 7. Nonenhancing left labial fluid collection correlate with physical exam. Dictated by: Romina Ortega M.D. at 2309 07/09/2017 XR chest 2 view performed at [facility]: 1. Atelectasis and/or scarring left lateral lower lung. Underlying infection less likely but not entirely excluded. Correlate with auscultated findings. Dictated by: Romina Ortega M.D. at 2216 07/09/2017 . Assessment & Plan Lynn Agudelo is a 47-year-old female with a past medical history significant for chronic back pain with opiate habituation and recurrent UTIs who is a direct admit from [facility] for pyelonephritis. Acute severe sepsis due to pyelonephritis with possible phlegmon secondary to nephrolithiasis, present on admission. Active. - Patient presented with fever, chills, rigors and nausea with leukocytosis with bandemia, lactic acidosis and mildly hypotensive. - Early goal-directed therapy met including: Broad-spectrum IV antibiotics and early fluid resuscitation. - Initial lactic acid at [facility] was normal at 1.7. Trending down secondary to surgery on 07/10 - Hypotension is fluid responsive. Continue IVF. - 250cc bolus PRN hypotension. Acute pyelonephritis with possible phlegmon secondary to nephrolithiasis, present on admission. Active. - Patient presented with fever, chills, rigors and nausea with leukocytosis and mildly hypotensive. - Left JJ stent placed 07/[address] Kaur w/o complications. Patient was hypotensive during procedure and received 2amp of ephedrine, but did not require continuous pressure support. - continue IV fluid hydration with NS at 100 mL/hr. - Initial Procalcitonin 3.1 at [facility]. Continue to trend. - oxycodone 5-325 mg 1-2 tabs every 6 hours as needed for pain. -blood cultures showed no growth after 24 hours -urine culture Grew Gram neg rods. - Continue ceftriaxone 2 g every 24 hours and metronidazole PO 500 mg twice a day 7 days. Acute kidney injury on chronic kidney disease, present on admission. Active. - Unclear patient's baseline creatinine. Initial creatinine 1.3 at [facility]. - Avoid nephrotoxins. -Continue IV fluid hydration with NS at 100 mL/hr. Acute bacterial vaginosis, present on admission. Active. -Continue metronidazole PO 500 mg twice a day 7 days. Chronic problems: Chronic back pain with opiate habituation, present on admission. Stable. - Continue oxycodone 5-325 mg 1-2 tabs every 6 hours as needed for pain. Tobacco use disorder, presently on admission. Stable. - Counseled the patient on smoking cessation. - Continue nicotine patch PRN for nicotine withdrawal. Obesity BMI 33 -Continue to encourage healthy diet PRN antiemetics: Zofran and Maalox. PRN bowel regimen: Senna and MiraLAX. PRN analgesics: Tylenol and oxycodone. Disposition: Patient is currently being treated for pyelonephritis and is post op day 0 for a ureter stent placement. Patient's blood pressure is being controlled with IVF to prevent hypotensive shock secondary to infection. Patient responding well to antibiotics, will likely be discharged home in the next 1-2 days with a close followup with Dr. Kaur. VTE Prophylaxis: Sub-Q Heparin (Unfractionated) Resuscitation Status: CPR: Attempt Resuscitation Attending Statement The patient was seen and examined together with Dr. Carolina on 07/11/17 and I have added additional information to the note above. Derick Carolina DO Jul 11, 2017 09:47 Jojo Lamar DO Jul 11, 2017 17:05
--- NOTE | 2017-07-11 14:54 | OP ---
[address] [address] OPERATIVE REPORT PATIENT: SD DURAND : 1970 MR#: [id number] ADMIT: 07/10/2017 JOB ID: [id number] DATE OF SURGERY: 07/10/2017 SURGEON: Spring Kaur MD. PROCEDURE: Cystoscopy with left-sided retrograde pyelogram and left-sided double-J stent placement. ANESTHESIA: General. PREOPERATIVE DIAGNOSIS(ES): Obstructed upper pole moiety with segmental pyelonephritis in a 47-year-old woman with partial ureteral duplication and urinary tract infection. POSTOPERATIVE DIAGNOSIS(ES): Obstructed upper pole moiety with segmental pyelonephritis in a 47-year-old woman with partial ureteral duplication and urinary tract infection. INDICATIONS: The patient is a 47-year-old woman with a significant past medical history for urinary infections and other medical comorbidities including chronic narcotic dependence and back pain presenting with urinary tract infection. Evaluation revealing a duplicated renal collecting system with obstructed upper pole segment of her kidney with an 8 mm stone and segmental pyelonephritis to this portion of the kidney by the radiographic findings, leukocytosis, fevers, chills. She was transferred from [facility] to [facility] for management with medical supportive care and also intervention or stent placement. PROCEDURE IN DETAIL: After appropriate informed consent was obtained, the patient was brought to the operating room. She was already on broad-spectrum antibiotics as per the hospitalist service. SCDs were placed. Adequate general anesthesia induced. She was carefully placed in dorsal lithotomy position. All pressure points carefully padded. Cleaned, prepped, and draped in the usual sterile fashion. Rigid scope was introduced into patient's bladder. She was noted to be erythematous consistent with history of urinary tract infection and with cloudy urine. This was drained. We did a retrograde pyelogram on this left side which did show her to have a partial duplication with a split one-half to one-third of the way down the ureter with the upper pole moiety obviously obstructed and the lower pole crisp and clear. We advanced a wire through the ureter, through the open-ended and were able to pass this up into the upper pole moiety past the stone. There was some minimal debris that came down once the wire was passed. We then passed a 6-[place]ib[place] x 26 cm double-J stent over the wire under fluoroscopic and direct visual guidance into good position with a curl in the renal pelvis and a curl in patient's bladder. String was cut off as this was intended to stay until she is treated for her urinary infection and the ureter has a chance to dilate. Once this was de-obstructed with the stent, we were able to see considerable cloudy debris and ultimately thick purulence which emerged from the openings in the stent as the upper pole was de-obstructed. We sent a culture once this was done from the operating room. The patient tolerated the procedure well. Bladder was drained, irrigated out. She was awakened, taken in stable condition to the postanesthesia care unit.
[2017-07-11] MEDS ORDERED: fentaNYL-PF 50 mCg/mL 2 mL Inj ONE (23:15)
[2017-07-11] MEDS ORDERED: Ketamine 10 mg/mL 20 mL Inj ONE (23:15)
[2017-07-12] VITALS (8 sets, daily range): BP systolic 98–108; BP diastolic 61–74; PULSE 64–82; RESP 16–20; O2SAT 95–99
[2017-07-12] MEDS: Heparin 5,000 Unit/mL Inj SUBQ SCH ×3 (00:05→16:30)
[2017-07-12] MEDS: 0.9% Sodium Chloride 1,000 ML IV SCH ×3 (02:03→21:37)
[2017-07-12] MEDS: cefTRIAXone Inj 2,000 MG in Dextrose 5% Minibag Plus 50 ML IV SCH (02:03)
[2017-07-12 03:02] LABS: Mean Corpuscular Hemoglobin 25.9 pg (27.0-35.0); Mean Corpuscular Volume 74.6 fL (81-100); Platelet Count 178 bil/L (150-400)
[2017-07-12 03:18] LABS: BASOPHILS % (AUTO) 0.1 % (0-3); EOSINOPHILS % (AUTO) 0 % (0-5); MONOCYTES % (AUTO) 7.1 % (4-12); NEUTROPHILS % (AUTO) 83.9 % (40-74)
--- NOTE | 2017-07-12 04:43 | NUR ---
Paper tape Pt states that paper tape gave her skin irritation and pain. Pt given ice pack to put over area and suggested that she pass on to lab to please use tegaderm to cover bandage.
[2017-07-12] MEDS: oxyCODONE-Acetamin 5-325 mg Tablet PO PRN ×3 (09:18→20:39)
--- NOTE | 2017-07-12 17:36 | NUR ---
Pain Pt reporting back pain "5-6/10" during this shift which she reports is baseline for her. She is also reporting generalized abdominal pain and bloating. Abdomen is soft and tender to palpation. Pt reports she has not a BM in a couple of days. She declines bowel meds at this time. She is also having burning with urination. Percocet given as per orders.
[2017-07-12] MEDS ORDERED: Phenazopyridine 97.5 mg Tablet PO PRN (18:30)
--- NOTE | 2017-07-12 18:33 | PCM.PNMED ---
Subjective Date of Service Jul 12, 2017 Subjective Patient states that she feels much better today, though still very weak compared to baseline. She appears a little more morose in her interactions, and slow in her speech compared to yesterday. She attributes this to a combination of factors both in and out of the hospital. No significant overnight events Comprehensive ROS negative except as outlined above. Exam Vital Signs Vital Sign - Last Date Time Temp Pulse Resp B/P Pulse Ox O2 Delivery O2 Flow Rate FiO2 07/12/17 11:45 36.7 74 20 101/72 98 Room Air 07/10/17 17:21 2 Intake and Output 07/11/17 07/11/17 07/12/17 Cumulative From/Thru 14:58 22:58 06:58 07/10/17 01:48 - 07/12/17 06:15 Intake Total 100 ml 1743 ml 1502 ml 04659 ml Output Total 575 ml 400 ml 2248 ml Balance -475 ml 1343 ml 1502 ml 7896 ml Intake Oral 100 ml 640 ml 1040 ml IV Total 1103 ml 1502 ml 9104 ml Output Urine Total 575 ml 400 ml 2145 ml Stool Total 100 ml Estimated Blood Loss 3 ml # Bowel Movements 1 1 Exam Gen: A/O x3 pleasant cooperative slightly depressed woman in NAD Neck: Supple, non tender, no JVD HEENT: PERRL, EOMI, no scleral icterus, no conjunctival pallor CV: RRR, no murmurs rubs or gallops Resp: lungs CTA BL, +wheezing, no rales or rhonchi Abd: Soft, mild diffuse tenderness to palpation Extr: No clubbing or cyanosis, mild BL LE edema Neuro: CN 2-12 grossly intact, no focal neurologic deficit Psych: Patient more flat affect and morose today. IVs and Medications Medications Reviewed: Medications were reviewed in detail Lab and Diagnostics Item Value Date Time Red Blood Count 3.86 mil/mm3 L 07/12/17254 Mean Corpuscular Volume 74.6 fL L 07/12/17254 Mean Corpuscular Hemoglobin 25.9 pg L 07/12/17254 Mean Corpuscular Hemoglobin Concent 34.7 % 07/12/17 025 Red Cell Distribution Width 16.9 % H 07/12/17 025 Neutrophils (%) (Auto) 83.9 % H 8/254 Lymphocytes (%) (Auto) 6.8 % L 07/12/17254 Monocytes (%) (Auto) 7.1 % 07/12/17254 Eosinophils (%) (Auto) 0 % 07/12/17254 Basophils (%) (Auto) 0.1 % 07/12/17254 Band Neutrophils % 2 % 07/12/17254 Estimat Glomerular Filtration Rate 96 mL/min 07/12/17254 Lactic Acid Level 1.1 mmol/L 07/12/17254 Calcium Level 8.3 mg/dL L 07/12/17254 Total Bilirubin 0.6 mg/dL 07/12/17254 Aspartate Amino Transf (AST/SGOT) 47 U/L 07/12/17254 Alanine Aminotransferase (ALT/SGPT) 35 U/L H 07/12/17254 Alkaline Phosphatase 94 U/L 07/12/17254 Total Protein 5.1 g/dL L 07/12/17254 Albumin 2.3 g/dL L 07/12/17254 Procalcitonin 27.86 ng/mL H 07/12/17254 Result Diagram: 07/12/1725407/12/17254 Microbiology Blood Cultures no growth after 24 hours Urine cultures grew gram negative rods. X-Rays, CTs and MRIs CT abdomen and pelvis with contrast performed at [facility]: 1. Partially obstructed pyelonephritis in the left renal upper pole. An 8 mm calculus is at the left upper pole uteropelvic junction. 2. 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 Distal extent of the duplication is not seen. 3. Focal 3 cm area of cortical hypodensity suspicious for renal phlegmon or renal abscess. 4. Enlarged, lobulated fibroid uterus. 5. Mildly enlarged ovaries with multicystic appearance to the right ovary. Further evaluation with pelvic ultrasound is recommended once the patient's acute illness has resolved. 6. Compressed urinary bladder with a diffusely thickened wall consistent with known history of cystitis. 7. Nonenhancing left labial fluid collection correlate with physical exam. Dictated by: Romina Ortega M.D. at 2309 07/09/2017 XR chest 2 view performed at [facility]: 1. Atelectasis and/or scarring left lateral lower lung. Underlying infection less likely but not entirely excluded. Correlate with auscultated findings. Dictated by: Romina Ortega M.D. at 3571 07/09/2017 . Assessment & Plan Lynn Agudelo is a 47-year-old female with a past medical history significant for chronic back pain with opiate habituation and recurrent UTIs who is a direct admit from [facility] for pyelonephritis. Acute severe sepsis due to pyelonephritis with possible phlegmon secondary to nephrolithiasis, present on admission. Improving - Patient presented with fever, chills, rigors and nausea with leukocytosis with bandemia, lactic acidosis and mildly hypotensive. - Early goal-directed therapy met including: Broad-spectrum IV antibiotics and early fluid resuscitation. - Initial lactic acid at [facility] was normal at 1.7. Trending down secondary to surgery on 07/10 - Hypotension is fluid responsive. Continue IVF. - 250cc bolus PRN hypotension. Acute pyelonephritis with possible phlegmon secondary to nephrolithiasis, present on admission. Active. - Patient presented with fever, chills, rigors and nausea with leukocytosis and mildly hypotensive. - Left JJ stent placed 07/[address] Kaur w/o complications. Patient was hypotensive during procedure and received 2amp of ephedrine, but did not require continuous pressure support. - continue IV fluid hydration with NS at 100 mL/hr. - Initial Procalcitonin 3.1 at [facility]. Continue to trend. - oxycodone 5-325 mg 1-2 tabs every 6 hours as needed for pain. -blood cultures showed no growth after 24 hours -urine culture Grew Gram neg rods. - Continue ceftriaxone 2 g every 24 hours and metronidazole PO 500 mg twice a day 7 days. Acute kidney injury on chronic kidney disease, present on admission. Active. - Unclear patient's baseline creatinine. Initial creatinine 1.3 at [facility]. - Avoid nephrotoxins. Acute bacterial vaginosis, present on admission. Active. -Continue metronidazole PO 500 mg twice a day 7 days. Chronic problems: Chronic back pain with opiate habituation, present on admission. Stable. - Continue oxycodone 5-325 mg 1-2 tabs every 6 hours as needed for pain. Tobacco use disorder, presently on admission. Stable. - Counseled the patient on smoking cessation. - Continue nicotine patch PRN for nicotine withdrawal. Obesity BMI 33 -Continue to encourage healthy diet PRN antiemetics: Zofran and Maalox. PRN bowel regimen: Senna and MiraLAX. PRN analgesics: Tylenol and oxycodone. Disposition: Patient continues incremental improvement today, she did have 1 febrile episode which combined with her complicated clinical course made it prudent to observe her for another 24 hours. Will likely DC home tomorrow. Pain Evaluation: Adequate Pain Control VTE Prophylaxis: Sub-Q Heparin (Unfractionated) Resuscitation Status: CPR: Attempt Resuscitation Attending Statement The patient was seen and examined together with Dr. Romero on 07/12/17 and I agree with the history, exam and plan as outlined in the note above. Nicolas Romero DO Jul 12, 2017 18:33 Jojo Lamar DO Jul 12, 2017 20:04
--- NOTE | 2017-07-12 21:50 | NUR ---
BM Pt had a bowel movement, without bowel protocol. Pt reports that it was her normal. Pt continues to have dark brown sedimentary urine.
[2017-07-13] VITALS (9 sets, daily range): BP systolic 98–115; BP diastolic 68–78; PULSE 74–92; RESP 18–24; O2SAT 92–98
[2017-07-13] MEDS: Heparin 5,000 Unit/mL Inj SUBQ SCH ×4 (00:04→23:38)
--- NOTE | 2017-07-13 02:05 | NUR ---
Transfer Pt transferred to [facility] room 3020. Report given to FEMI Leon. Pt transferred via wheelchair with all belongings with her and her friend who is spending the night at the hospital.
--- NOTE | 2017-07-13 02:15 | NUR ---
[place] [facility] [place] [facility] [place] [facility] on wheelchair at 0205, alert and orientedx3, mild discomfort with urination, "bloody" urine, mild back pain, denies flank pain or abdominal pain or SOB,nausea, fever or chills. BP 115/78 HR 76 T 37. Lung sounds clear, HR regular, no murmur, abdomen soft, mild tenderness at pelvic area, no tenderness at flanks. No edema at LEs or eyelids. Pt oriented to call light, oral fluids encouraged. Care ongoing.
[2017-07-13] MEDS: cefTRIAXone Inj 2,000 MG in Dextrose 5% Minibag Plus 50 ML IV SCH (02:32)
[2017-07-13] MEDS: oxyCODONE-Acetamin 5-325 mg Tablet PO PRN ×3 (02:47→21:16)
[2017-07-13 06:21] LABS: BASOPHILS % (AUTO) 0.2 % (0-3); EOSINOPHILS % (AUTO) 2.2 % (0-5); MONOCYTES % (AUTO) 9.6 % (4-12); Mean Corpuscular Hemoglobin 25.3 pg (27.0-35.0); Mean Corpuscular Volume 76.3 fL (81-100); Platelet Count 194 bil/L (150-400)
[2017-07-13 06:44] LABS: INR 1.01 ratio
[2017-07-13 06:45] LABS: Magnesium 1.6 mg/dL (1.6-2.6); Phosphorus 2.7 mg/dL (2.5-4.9)
[2017-07-13] MEDS: 0.9% Sodium Chloride 1,000 ML IV SCH (09:18)
--- NOTE | 2017-07-13 11:02 | PCM.PNMED ---
Subjective Date of Service Jul 13, 2017 Subjective Patient seen and examined. Still in pain. Vitals noted. Exam Vital Signs Vital Sign - Last Date Time Temp Pulse Resp B/P Pulse Ox O2 Delivery O2 Flow Rate FiO2 07/13/17 10:28 37.0 78 20 111/73 97 Room Air 07/10/17 17:21 2 Intake and Output 07/12/17 07/12/17 07/13/17 Cumulative From/Thru 15:00 23:00 07:00 07/10/17 01:48 - 07/13/17 05:31 Intake Total 840 ml 315 ml 69719 ml Output Total 750 ml 100 ml 3698 ml Balance 90 ml 215 ml 7801 ml Intake Oral 840 ml 250 ml 2330 ml IV Total 65 ml 9169 ml Output Urine Total 750 ml 100 ml 3595 ml Stool Total 100 ml Estimated Blood Loss 3 ml # Bowel Movements 1 Exam Gen: A/O x3 pleasant cooperative slightly depressed woman in NAD Neck: Supple, non tender, no JVD HEENT: PERRL, EOMI, no scleral icterus, no conjunctival pallor CV: RRR, no murmurs rubs or gallops Resp: lungs CTA BL,no rales or rhonchi Abd: Soft, mild diffuse tenderness to palpation Extr: No clubbing or cyanosis, mild BL LE edema Neuro: CN 2-12 grossly intact, no focal neurologic deficit Psych: Patient more flat affect and morose today. Lab and Diagnostics Result Diagram: 07/13/17 0553 07/13/17 0553 Microbiology Blood Cultures no growth after 24 hours Urine cultures grew gram negative rods. X-Rays, CTs and MRIs CT abdomen and pelvis with contrast performed at [facility]: 1. Partially obstructed pyelonephritis in the left renal upper pole. An 8 mm calculus is at the left upper pole uteropelvic junction. 2. 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 Distal extent of the duplication is not seen. 3. Focal 3 cm area of cortical hypodensity suspicious for renal phlegmon or renal abscess. 4. Enlarged, lobulated fibroid uterus. 5. Mildly enlarged ovaries with multicystic appearance to the right ovary. Further evaluation with pelvic ultrasound is recommended once the patient's acute illness has resolved. 6. Compressed urinary bladder with a diffusely thickened wall consistent with known history of cystitis. 7. Nonenhancing left labial fluid collection correlate with physical exam. Dictated by: Romina Ortega M.D. at 2309 07/09/2017 [address]R chest [address] [facility]: 1. Atelectasis and/or scarring left lateral lower lung. Underlying infection less likely but not entirely excluded. Correlate with auscultated findings. Dictated by: Romina Ortega M.D. at 2216 07/09/2017 . Assessment & Plan Lynn Agudelo is a 47-year-old female with a past medical history significant for chronic back pain with opiate habituation and recurrent UTIs who is a direct admit from [facility] for pyelonephritis. Acute severe sepsis due to pyelonephritis with possible phlegmon secondary to nephrolithiasis, present on admission. Improving - Patient presented with fever, chills, rigors and nausea with leukocytosis with bandemia, lactic acidosis and mildly hypotensive. - Early goal-directed therapy met including: Broad-spectrum IV antibiotics and early fluid resuscitation. - Initial lactic acid at [facility] was normal at 1.7. Trending down secondary to surgery on 07/10 - 250cc bolus PRN hypotension, although patient is at baseline bp now. - White count and pct has trended down - Bcx negative , Urine culture grew Ecoli - will get Dr. Villagomez's input regarding antibiotic management Acute pyelonephritis with possible phlegmon secondary to nephrolithiasis, present on admission. Active. - Patient presented with fever, chills, rigors and nausea with leukocytosis and mildly hypotensive. - Left JJ stent placed 07/[address] Kaur w/o complications. Patient was hypotensive during procedure and received 2amp of ephedrine, but did not require continuous pressure support. - Initial Procalcitonin [address] [facility]. Trended down - oxycodone 5-325 mg 1-2 tabs every 6 hours as needed for pain. - blood cultures showed no growth after 24 hours -urine culture Grew ecoli - Continue ceftriaxone 2 g every 24 hours Acute kidney injury on chronic kidney disease, present on admission. Resolved - Unclear patient's baseline creatinine. Initial creatinine 1.[address] [facility]. - normalized now - Avoid nephrotoxins. Acute bacterial vaginosis, present on admission. Active. -Continue metronidazole PO 500 mg twice a day 5 days. Chronic problems: Chronic back pain with opiate habituation, present on admission. Stable. - Continue oxycodone 5-325 mg 1-2 tabs every 6 hours as needed for pain. Tobacco use disorder, presently on admission. Stable. - Counseled the patient on smoking cessation. - Continue nicotine patch PRN for nicotine withdrawal. Obesity BMI 33 -Continue to encourage healthy diet PRN antiemetics: Zofran and Maalox. PRN bowel regimen: Senna and MiraLAX. PRN analgesics: Tylenol and oxycodone. Disposition: Patient continues incremental improvement today, she did have 1 febrile episode which combined with her complicated clinical course made it prudent to observe her for another 24 hours. Will monitor . VTE Prophylaxis: Sub-Q Heparin (Unfractionated) VTE Mechanical Devices: Intermittant Pneumatic CD Resuscitation Status: CPR: Attempt Resuscitation Time spent 35 mins Yash Yanez MD Jul 13, 2017 11:02
--- NOTE | 2017-07-13 11:48 | NUR ---
Social Work-readiness for discharge: Data:EMR reviewed. P tis on day 3 of hospitalization for sepsis per H&P. Pt is not medically stable anticipate 1-2 more days. Per RN notes, pt has been up independent in her room. Per MD in morning rounds, pt to have consult from ID MD. No anticipated discharge needs. SW will continue to follow if needs arise. Assessment:pt who is independent at baseline. Plan:Pt to discharge home when medically stable via POV. No anticipated discharge needs. SW will continue to follow if needs arise. ELEANOR Gonzalez
[2017-07-13] MEDS: Trimethoprim-Sulfa 160 mg-800 mg Tablet PO SCH ×2 (13:59→21:14)
[2017-07-13] MEDS ORDERED: Furosemide 10 mg/mL 2 mL Inj IVPUSH ONE (17:25)
--- NOTE | 2017-07-13 22:00 | NUR ---
Anasarca/Edema During assessment, pt has trace edema in extremities. Visibly retaining fluids but not pitting or non pitting. Pt c/o L wrist leaking. With close assessment, pt wrist was weeping from small lab draw access site, weeping clear/water like fluid when squeezed. Band aid applied. updated. New order for one time Lasix dose. Pt edema is reduced in extremities, pt reports feeling more comfortable.
--- NOTE | 2017-07-13 22:08 | CONS ---
[address] [address] CONSULTATION REPORT PATIENT: SD DURAND : 1970 MR#: [id number] ADMIT: 07/10/2017 JOB ID: [id number] DATE OF SERVICE: 07/13/2017 INFECTIOUS DISEASE CONSULTATION: I thank Dr. Yanez for this timely consult. REASON FOR CONSULTATION: Complicated urinary tract infection. HISTORY OF PRESENT ILLNESS: The patient is a 47-year-old woman who is basically disabled by chronic back pain and uses opiates for treatment of that chronic back pain. She also has a history of recurrent UTIs. She was in her usual state of health on this occasion up until July 09 when she developed the abrupt onset of fevers, chills, nausea, headache and some left flank pain. She denies dysuria per se. She reports this is similar to prior urinary tract infection she has had but much worse. She initially went to [facility] and was found to be quite ill with what was obviously pyelonephritis in that she had leukocytosis with heavy bandemia, lactic acidosis, a relatively soft systolic blood pressure, and overall toxicity. Imaging showed that there was a significant stone present and because of the complicated issues involved she was transferred to this facility on July 10. Since that time, she has been treated with broad-spectrum antibiotics and has undergone placement of a left-sided double-J stent by Dr. Kaur. The obstructing stone in the left ureter was not removed, though was stented and further urologic procedures are planned. Today, the patient reports she is much better and that her fevers and chills have resolved. Oddly, she notes that she has developed a nonproductive cough during her hospital stay which she did not have at the onset of all these symptoms some five days ago. Additionally, she notes there is a great deal of swelling of her hands and feet which she finds distressing, which also has occurred since she has been here in the hospital. On the positive side, though her fevers, chills and left flank pain are gone. PAST MEDICAL HISTORY: 1. Recurrent urinary tract infections. 2. Chronic back pain with opiate use for therapy. 3. Nephrolithiasis just diagnosed during this admission. 4. Chronic tobacco use. SOCIAL HISTORY: The patient lives with relatives in the [facility]. She is currently unemployed, and formerly worked in insurance. She does not drink alcohol, but does smoke cigarettes about one pack a day, and has for about three decades. FAMILY HISTORY: Negative for TB in first and second-degree relatives. REVIEW OF SYSTEMS: Was done. At this point, she has no headache, though she did when she was admitted, it has completely resolved. No sinus or visual complaints. No sore throat or trouble swallowing. She does have a cough which is nonproductive and started 3-4 days ago after she was already in the hospital. No substernal chest pain. She did have left flank pain that is now gone. She also had nausea and vomiting which have resolved, and she is now looking forward to lunch and a [employer] drink one of her friends just brought her. She does note she has some suprapubic tenderness which remains, but she never had any dysuria, urgency or frequency as part of this, and still does not. She notes she has puffiness in all four extremities but she has good strength. No skin rash. The remainder of the review of systems is negative. PHYSICAL EXAMINATION: Reveals an afebrile woman. Temp 37, pulse 78, respiratory rate 20, blood pressure 111/73. She is saturating well on room air. In no acute distress. She does appear fatigued certainly, however. She is alert and oriented. Her hair is underlying brown but bright red on top. The patient's sinuses are nontender. Eyes without conjunctivitis or scleral icterus. Oral cavity without thrush or hairy leukoplakia. Neck completely supple. No adenopathy. Lungs are clear posteriorly and I sat her up with some difficulty and listened carefully and heard very little in the way of rales or adventitial sounds. Cardiac tones regular rate and rhythm without murmur. Abdomen is obese, soft and nontender. There is no flank tenderness, and specifically no left flank tenderness. Suprapubic area with mild tenderness and fullness. She does not have a Samuel at this time. The extremities have some minimal edema of the hands and feet, forearms and distal legs bilaterally, it is about 1+ nonpitting edema. There is no skin rash noted. No synovitis. She has intact peripheral pulses and grossly normal neurologic exam. LABORATORIES: Include white count [id number] when she came in, now completely normal at 8000. Her diff did show pronounced left shift with 11% bands, 92% polys when she came in. It is now normal. Creatinine was 1.4 at one point, it is now 0.63. Liver function tests normal. Albumin 2.4. Procalcitonin 10; it was 40 two days ago. Urinalysis had greater than 50 white cells when she came in. Urine culture is positive for ampicillin and quinolone resistant E. coli. This organism is sensitive to oral cephalosporins, as well as trimethoprim/sulfamethoxazole. Blood cultures have been negative. IMAGING: Includes the retrograde urography which shows the presence of ureteral stent which had been placed. IMPRESSION: This is a case of a woman with recurrent urinary tract infections who was admitted with severe complicated urinary tract infection related to a stone. The patient has undergone appropriate stenting of the stone and has now received four or five days of intravenous antibiotics. Quinolones would be the ideal choice here as they are very active agents which can be given orally, but unfortunately this Escherichia coli is resistant. A review of the guidelines and the literature suggests that Bactrim would be an acceptable choice in a patient like this who has had several days of IV therapy and is rapidly improving. RECOMMENDATIONS: 1. I would continue with ceftriaxone as long as the patient is here in the hospital. 2. Will go ahead and start her on trimethoprim/sulfamethoxazole to make sure she tolerates that well. 3. Assuming the patient tolerates the trimethoprim/sulfamethoxazole well, she could be discharged later today or tomorrow. The total duration should be about two weeks from today's discharge as the patient still faces an additional urologic procedure and it is important that she continue to have sterile urine. 4. I would recommended that in about 5-7 days the patient have a repeat potassium and creatinine done through her primary care doctor in [facility] to ensure there is no creeping hyperkalemia or renal insufficiency as a result of this, though I would not anticipate it in this healthy woman whose current potassium is 3.9 and creatinine is normal. 5. As I will be out of town the next few days, I am going to go ahead and sign off on this case, but please do not hesitate to call me back about this or any other case as issues arise. TAYLOR
[2017-07-14 00:42] VITALS: BP 107/69; PULSE 82; RESP 18; O2SAT 94
[2017-07-14 04:08] VITALS: BP 112/72; PULSE 78; RESP 16; O2SAT 92
--- NOTE | 2017-07-14 05:50 | NUR ---
Uneventful Night: Pt had an uneventful night, no c/o pain, chest pain or SOB. Pt slept most of the night, pleasant and cooperative with care. Addendum: 07/14/17 at 0551 by ANDREWS NORIEGA RN Temp: Pt had mild temp during the night of 37.3; asymptomatic.
[2017-07-14 06:58] LABS: Mean Corpuscular Volume 73.8 fL (81-100); Platelet Count 208 bil/L (150-400)
[2017-07-14 07:51] LABS: BASOPHILS % (AUTO) 1 % (0-3); EOSINOPHILS % (AUTO) 7 % (0-5); MONOCYTES % (AUTO) 9 % (4-12); NEUTROPHILS % (AUTO) 64 % (40-74)
[2017-07-14 09:12] VITALS: BP 115/77; PULSE 82; RESP 16; O2SAT 92
[2017-07-14] MEDS: Trimethoprim-Sulfa 160 mg-800 mg Tablet PO SCH (09:21)
[2017-07-14] MEDS: Heparin 5,000 Unit/mL Inj SUBQ SCH (09:21)
[2017-07-14] MEDS: oxyCODONE-Acetamin 5-325 mg Tablet PO PRN (09:29)
[2017-07-14 10:48] VITALS: PULSE 87
--- NOTE | 2017-07-14 12:03 | NUR ---
Activity/Ambulation Walked with pt around unit 1.5 times. Pt denied SOB for most, but with speaking and towards the end of the walk pt reported feeling SOB. SpO2 monitored, typically around 90% but when out of breath pt SpO2 down to 88%. Spoke with pt about respiratory issues that may compromise/restrict breathing. Pt tolerated activity well.
[2017-07-14] MEDS ORDERED: SULF1TAB35 PO (12:11)
[2017-07-14] MEDS ORDERED: OXYC1TAB24 PO (12:11)
--- NOTE | 2017-07-14 12:14 | PCM.DIMED ---
Discharge Instructions Date of Service Jul 14, 2017 Dates of Hospitalization Jul 10, 2017 at 01:11 Discharge Diagnosis Discharge Diagnosis Pyelonephritis + Urolithiasis Activity Discharge Activity: No restrictions Call your provider Call your provider for: Fever or Chills, Shortness of breath, Excessive diarrhea Patient Instructions Follow-up with PCP in: 1 week (Follow up BMP to check Cr and K+ levels) Provider: Spring Kaur MD Follow-up in: 1 week Yash Yanez MD Jul 14, 2017 12:14
--- NOTE | 2017-07-14 12:17 | PCM.DC.MED ---
Discharge Summary Date of Service Jul 14, 2017 Dates of Hospitalization Date of Hospital Admission Jul 10, 2017 at 01:11 Date of Discharge: Jul 14, 2017 Providers: Admitting Physician: Adrian Bergman MD Primary Care Physician: Garrison Carpenter MD Attending Physician: Cooper Welch MD Diagnosis at Time of Discharge Diagnosis at Time of Discharge Pyelonephritis + Urolithiasis Procedures XRay, CTs & MRIs CT abdomen and pelvis with contrast performed at [facility]: 1. Partially obstructed pyelonephritis in the left renal upper pole. An 8 mm calculus is at the left upper pole uteropelvic junction. 2. 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 Distal extent of the duplication is not seen. 3. Focal 3 cm area of cortical hypodensity suspicious for renal phlegmon or renal abscess. 4. Enlarged, lobulated fibroid uterus. 5. Mildly enlarged ovaries with multicystic appearance to the right ovary. Further evaluation with pelvic ultrasound is recommended once the patient's acute illness has resolved. 6. Compressed urinary bladder with a diffusely thickened wall consistent with known history of cystitis. 7. Nonenhancing left labial fluid collection correlate with physical exam. Dictated by: Romina Ortega M.D. at 2309 07/09/2017 XR chest [address] [facility]: 1. Atelectasis and/or scarring left lateral lower lung. Underlying infection less likely but not entirely excluded. Correlate with auscultated findings. Dictated by: Romina Ortega M.D. at 2216 07/09/2017 . Brief History Pt is a 47 y/o woman admitted to hospitalist service overnight from [place] with Leukocytocis, fever to 102, shaking chills and CT remarkable for partially duplicated renal collecting system on L with upper pole moeity obstructed by an 8mm calculus with herogeneity of the L upper pole c/w pyelonephritis, and upper pole hydro (not lower.) WBC was 16 with 70%N and 20% Bands She recieved flagyl and Ceftriaxone at [facility] prior to transfer PT admitted after midnight on 07/10 on transfer and was katy with hypotension BP 96/54. She was put on Ceftriaxone with cultures pending. Outside CT images were reviewed Unfortunately patient was initially given solid diet and took in at least coffee with cream which delayed her stent placement by several hours. She did ultiamtely have L Upper pole JJ stent placed after 3pm 07/10 and there was white purulence which drained down readily after stent was placed. U Cx was sent post de-obstruction from the OR Hospital Course Lynn Agudelo is a 47-year-old female with a past medical history significant for chronic back pain with opiate habituation and recurrent UTIs who is a direct admit from [facility] for pyelonephritis. Acute severe sepsis due to pyelonephritis with possible phlegmon secondary to nephrolithiasis, present on admission. Improving - Patient presented with fever, chills, rigors and nausea with leukocytosis with bandemia, lactic acidosis and mildly hypotensive. - Early goal-directed therapy met including: Broad-spectrum IV antibiotics and early fluid resuscitation. - Initial lactic acid at [facility] was normal at 1.7. Trending down secondary to surgery on 07/10 - 250cc bolus PRN hypotension, although patient is at baseline bp now. - White count and pct has trended down - Bcx negative , Urine culture grew Ecoli - will get Dr. Villagomez's input regarding antibiotic management : continue bactrim X 14 days Acute pyelonephritis with possible phlegmon secondary to nephrolithiasis, present on admission. Resolving - Patient presented with fever, chills, rigors and nausea with leukocytosis and mildly hypotensive. - Left JJ stent placed 07/[address] Kaur w/o complications. Patient was hypotensive during procedure and received 2amp of ephedrine, but did not require continuous pressure support. - Initial Procalcitonin 3.[address] [facility]. Trended down - oxycodone 5-325 mg 1-2 tabs every 6 hours as needed for pain. - blood cultures showed no growth after 24 hours -urine culture Grew ecoli - outpatient follow up with Dr. Kaur , abx :bactrim X 14 days Acute kidney injury on chronic kidney disease, present on admission. Resolved - Unclear patient's baseline creatinine. Initial creatinine 1.[address] [facility]. - normalized now - Avoid nephrotoxins. Acute bacterial vaginosis, present on admission. Active. -Continue metronidazole PO 500 mg twice a day 5 days. Chronic problems: Chronic back pain with opiate habituation, present on admission. Stable. - Continue oxycodone 5-325 mg 1-2 tabs every 6 hours as needed for pain. Tobacco use disorder, presently on admission. Stable. - Counseled the patient on smoking cessation. - Continue nicotine patch PRN for nicotine withdrawal. Obesity BMI 33 -Continue to encourage healthy diet Exam Vital Signs (Last) Date Time Temp Pulse Resp B/P Pulse Ox O2 Delivery O2 Flow Rate FiO2 07/14/17 10:48 87 07/14/17 09:12 37.1 16 115/77 92 Room Air 07/10/17 17:21 2 Test 07/10/17 01:40 07/12/17 02:55 07/13/17 05:53 07/14/17 06:00 Urine Color Dark yellow (YELLOW) Urine Appearance Slightly cloudy Urine pH 5.0 (5.0-8.0) Urine Specific [place] >1.050 (1.003-1.035) Urine Protein Tracemg/dL (NEG,TRACE) Urine Glucose (UA) Negativemg/dL (NEGATIVE) Urine Ketones Negativemg/dL (NEGATIVE) Urine Occult Blood Moderate (NEGATIVE) Urine Nitrite Negative (NEGATIVE) Urine Bilirubin Negative (NEGATIVE) Urine Urobilinogen 1.0mg/dL (NORMAL) Urine Leukocyte Esterase Negative (NEGATIVE) Urine RBC 0-2/hpf (0-2) Urine WBC >50/hpf (0-5) Urine Epithelial Cells Moderate/hpf (NONE-MOD) Urine Crystals None seen (NONE SEEN) Urine Bacteria Few/hpf (NONE-FEW) Urine Hyaline Casts None/lpf (NONE) Urine Granular Casts None seen (NONE SEEN) Urine Waxy Casts None seen (NONE SEEN) Urine Red Blood Cell Casts None seen (NONE SEEN) Urine White Blood Cell Casts None seen (NONE SEEN) Urine Mucus None seen (None Seen) Urine Trichomonas None seen (NONE SEEN) Urine Yeast None (NONE SEEN) Urinalysis Comment None Urine Culture Reflexed Indicated Hemoglobin A1c 5.3% (4.8-5.6) Hold Bueno Top Tube Received (Received) Band Neutrophils % 2% (1-5) Hematology Comments Lactic Acid Level 1.1mmol/L (0.4-2.0) Prothrombin Time 10.8sec (8.1-12.5) Prothromb Time International Ratio 1.01ratio Phosphorus Level 2.7mg/dL (2.5-4.9) Magnesium Level 1.6mg/dL (1.6-2.6) Total Bilirubin 0.6mg/dL (0.0-1.2) Aspartate Amino Transf (AST/SGOT) 40U/L (0-50) Alanine Aminotransferase (ALT/SGPT) 36U/L (0-32) Alkaline Phosphatase 138U/L (25-150) Total Protein 4.3g/dL (6.4-8.4) Albumin 2.4g/dL (3.4-5.0) Procalcitonin 10.33ng/mL (0.00-0.08) White Blood Count 11.0th/mm3 (3.8-10.1) Red Blood Count 4.08mil/mm3 (3.90-5.20) Hemoglobin 10.2g/dL (12.0-15.6) Hematocrit 30.1% (35.0-46.0) Mean Corpuscular Volume 73.8fL (81-100) Mean Corpuscular Hemoglobin 25.0pg (27.0-35.0) Mean Corpuscular Hemoglobin Concent 33.9% (32.0-37.0) Red Cell Distribution Width 16.8% (12.3-15.4) Platelet Count 208bil/L (150-400) Neutrophils (%) (Auto) 64% (40-74) Lymphocytes (%) (Auto) 17% (14-46) Monocytes (%) (Auto) 9% (4-12) Eosinophils (%) (Auto) 7% (0-5) Basophils (%) (Auto) 1% (0-3) Metamyelocytes % 1% (0-0) Myelocytes % 1% (0-0) Sodium Level 138mEq/L (134-144) Potassium Level 3.7mEq/L (3.5-5.2) Chloride Level 106mEq/L (97-108) Carbon Dioxide Level 20mmol/L (18-29) Blood Urea Nitrogen 11mg/dL (6-24) Creatinine 0.57mg/dL (0.57-1.00) Estimat Glomerular Filtration Rate 162mL/min (>59) Glucose Level 76mg/dL (60-99) Calcium Level 7.9mg/dL (8.5-10.1) Microbiology Results Blood Cultures no growth after 24 hours Urine cultures grew gram negative rods. Discharge Medications Discharge Medications Sulfamethoxazole/Trimeth 800-160 mg (Bactrim DS 800-160 mg) 1 Each Tablet 1 TABLET PO BID Prescribed by: COOPER WELCH MD As needed oxyCODONE-Acetaminophen 5-325 mg (oxyCODONE-Acetaminophen 5-325 mg) 1 Each Tablet 1-2 TAB PO Q6H PRN PRN For Pain Prescribed by: COOPER WELCH MD Followup Plan Disposition: 35 mins Discharge Activity: No restrictions Follow-up with PCP in: 1 week (Follow up BMP to check Cr and K+ levels) Provider: Spring Kaur MD Follow-up in: 1 week Cooper Welch MD Jul 14, 2017 12:17
--- NOTE | 2017-07-14 14:05 | NUR ---
Social Work-discharge: Data:EMR reviewed. Pt is on day 4 of hospitalization for sepsis per H&P. Pt is medically stable for discharge. Pt resides at home and has been up independent in her room. SW confirmed home no needs. Pt's friend to provide transport home today. No other discharge needs identified. All updated and agreeable to plan. Assessment:Pt who is independent at baseline. Plan:Pt to discharge home today via POV. No other discharge needs identified. All updated and agreeable to plan. ELEANOR Gonzalez
--- NOTE | 2017-07-14 14:08 | NUR ---
Discharge Reviewed discharge paperwork, care notes and medications with pt - disclaimer signed. IV DCd intact, tele removed, all belongings with pt. Pt reports mild 2/10 chronic back pain and mild SOB. Pt declines WC escort out of unit, walking out on foot. Pt is strong and steady walking out. Friend is giving pt ride home.
== END 2017-07-14 13:46 | disposition home or self-care (01) | DRG 872 ==
LOC: PCC 01:11 → MPC 07-13 02:00
PROVIDERS: ADMIT Hospitalist; ATTEND Hospitalist
PROC: 0T948ZX Drainage of Left Kidney Pelvis, Via Natural or Artificial Opening Endoscopic, Diagnostic (ICD-10-PCS; 2017-07-10)
PROC: BT1F1ZZ Fluoroscopy of Left Kidney, Ureter and Bladder using Low Osmolar Contrast (ICD-10-PCS; 2017-07-10)
PROC: 0T778DZ Dilation of Left Ureter with Intraluminal Device, Via Natural or Artificial Opening Endoscopic (ICD-10-PCS; principal; 2017-07-10 15:30)
DX: A41.51 Sepsis due to Escherichia coli [E. coli] (principal); N17.9 Acute kidney failure, unspecified; N20.0 Calculus of kidney; F11.20 Opioid dependence, uncomplicated; N10 Acute pyelonephritis; R65.20 Severe sepsis without septic shock; T40.2X5A Adverse effect of other opioids, initial encounter; N76.0 Acute vaginitis; G89.29 Other chronic pain; Z71.6 Tobacco abuse counseling; E66.9 Obesity, unspecified; Z68.33 Body mass index [BMI] 33.0-33.9, adult; Z71.3 Dietary counseling and surveillance; Z87.442 Personal history of urinary calculi; F17.210 Nicotine dependence, cigarettes, uncomplicated; Z16.23 Resistance to quinolones and fluoroquinolones; B96.20 Unspecified Escherichia coli [E. coli] as the cause of diseases classified elsewhere

== ENCOUNTER → 2017-08-21 | Day surgery (SDC) | payer OTHER ==
--- NOTE | 2017-08-20 16:04 | PCM.HPANE ---
Patient Data Surgeon Admitting Provider: Attending Provider:Spring Kaur MD Primary Care Physician:Garrison Carpenter MD Other Provider:[facility] Reason for Visit Left Kidney Stone Ht/WT & BMI Height (Feet): 5 Height (Inches): 3.5 Weight (Kilograms): 78.925 Body Mass Index 30.00 Allergies Coded Allergies: No Known Allergies (Unverified , 08/19/17) Past Anesthesia History Anesthesia History: Denies:: Abnormal Airway, Anesthesia Reactions, Difficult Intubation, Malignant Hyperthermia Diabetes History Hx Diabetes?: No MRSA MRSA: No Medications Active Scripts Sulfamethoxazole/Trimeth 800-160 mg (Bactrim DS 800-160 mg)1 Each Tablet1 Tablet PO BID 14 Days Prov:Yash Yanez MD 07/14/17 Reported Medications Gabapentin 600 Mg Tablet1,200 Mg PO TID #180 08/21/17 oxyCODONE 5 Mg Capsule5 Mg PO Q4H PRN For Pain Ref 0 08/19/17 Discontinued Scripts oxyCODONE-Acetaminophen 5-325 mg 1 Each Tablet1-2 Tab PO Q6H PRN For Pain 7 Days Ref 0 Prov:Yash Yanez MD 07/14/17 History History of ENT Problems?: No HEENT History: Denies:: Abnormal Airway Cataracts Difficult Intubation Dysphagia Hearing Problem Sinus Problem TMJ Denture Type: None Teeth Condition: Within Normal Limits Hx of Heart Problems?: No Cardiovascular History: Denies:: AICD Abdominal Aortic Aneurism Atrial Fibrillation Cardiac Surgery Chest Pain Congestive Heart Failure Edema Heart Murmur Hypertension Irregular Heartbeat Pacemaker Rheumatic Fever Thrombophlebitis Valvular Heart Disease Hx of Respiratory Problem?: Yes Respiratory History: Denies:: Asthma COPD Chest Surgery Cough Dyspnea Emphysema Hemoptysis Oxygen Administration Pneumonia Pulmonary Embolism Tuberculosis Use of C-PAP Machine (SNORES) Hx Neurologic Problems?: Yes Neurological History: Positive for:: Seizures (once at age 6 after traumatic neck injury) Hx of GI Problems?: Yes Other GI Pertinent History: S/P LIPOSX,"TUMMY TUCK" Hx of Problems?: Yes Genitourinary History: Positive for:: Kidney Stones (LT KIDNEY STONE=CURRENT PROBLEM S/P CYSTO, LT STENT 06/2017) Urinary Tract Infection (chronic UTIs until 's/PYELONEPHRITIS) Other Pertinent History: DUPLICATED LT RENAL COLLECTING SYSTEM Female Hx: Denies:: Currently Endometriosis Pelvic Inflammatory Problems with Breasts? Skin History: Denies:: History Skin Disorders? Pressure Ulcers Hx Musculoskeletal Problems?: Yes Musculoskeletal History: Positive for:: Back Injury (work injury ) Musculoskeletal Trauma (HX BILAT HAIRLINE RADIAL FX'S S/P LT ORIF ANKLE) Denies:: Joint Replacement Osteoarthritis (C/OF JOINT PAIN) Hx of Psycho/Social Problems?: No Hx Surgeries?: Yes (lipo/tummy tuck,CYSTO/LT URETERAL STENT,ORIF LT ANKLE) Hx Any Other Health Problems?: Yes Other History: Denies:: Cancer Endocrine Disease Hospitalization Thyroid Disease History Blood Transfusions: Positive for:: Blood Transfusions Denies:: Blood Transfuse Reaction Hx Diabetes: No Hx Alcohol Use: NoHx Substance Use: No Smoking Status: Current Every Day Smoker Have You Smoked inLast 12 mo: YesApprox How Many Cigarettes/day: 1 PPD X 30YRS Stop/Bang S-Snoring: Do You Snore Loudly: Yes T-Tired: feel tired, fatigued: Yes O-Obsered: Observed not breath: Yes P-Blood Pressure: treated: No B- Body Mass Index > 35 kg/m2: No A- Age over 50: No N- Neck Large Circumference: No G- Gender Male: No ISIDORO Total Score: 3 Risk Assessment Category Category 1A: Patient has history of documented sleep apnea, and HAS NOT received any narcotic, sedative or anesthesia administration during this stay. Category 1B: Patient has history of documented sleep apnea, and HAS received any narcotic , sedative or anesthesia administration during this stay Category 2: Patient has SUSPECTED Obstructive Sleep Apnea, and HAS received any narcotic , sedative or anesthesia administration during this stay. Category 3: Patient has SUSPECTED Obstructive Sleep Apnea and HAS NOT received narcotic, sedative or anesthesia administration during this stay. Category 4: Outpatient in Procedural Areas with known sleep apnea or who screen positive for High Risk via the STOP/BANG questionnaire. Exam Exam General Appearance: Alert, Oriented X3 HEENT/AIRWAY: MP 1 Lungs: Clear to Auscultation Heart: Exam Unremarkable Plan Impression Patient chart reviewed, patient interviewed and anesthestic plan with risks, benefits, and alternatives discussed, and informed consent obtained. NPO per Anesth. Guidelines: Yes ASA Physical Status: ASA2 Mod Systemic Disease Anesthetic Plan: GA Bene/Risks/Altern/Consents: Yes HP Complete Prior to Induction: Yes Helga Gonzalez MD Aug 20, 2017 16:04
[~2017-08-21] VITALS: Ht 157.5 cm; Wt 80.4 kg
[~2017-08-21] MED LIST: Belladonna Alk-Opium 60 mg Rectal Suppository RECTAL ONE; Dexamethasone 4 mg/mL Inj IVPUSH PRN; EPHEDrine Sulfate 50 mg/mL Inj IVPUSH PRN; GABA600T2 PO; HYDROmorphone 1 mg/mL Inj IVPUSH PRN; Lactated Ringer's 1,000 ML IV SCH; Lactated Ringer's 500 ML IV PRN; MetoCLOpramide 5 mg/mL 2 mL Inj IVPUSH PRN; OXYC5CAP4 PO; Ondansetron 2 mg/mL 2 mL Inj IVPUSH PRN; Ondansetron 8 mg ODT Tablet PO PRN; Phenylephrine 10,000 mCg/mL Inj IVPUSH PRN; Phenylephrine/NS 100 mCg/mL 10 mL Syringe IVPUSH ONE; Propofol 10,000 mCg/mL 20 mL Inj ONE; SULF1TAB35 PO; cefTRIAXone Inj 1,000 MG in Dextrose 5% Minibag Plus 50 ML IV ONE; fentaNYL-PF 50 mCg/mL 2 mL Inj IVPUSH PRN; fentaNYL-PF 50 mCg/mL 2 mL Inj ONE
[2017-08-21] MEDS: Lactated Ringer's 1,000 ML IV SCH ×2 (12:16→14:06)
[2017-08-21 12:26] VITALS: BP 105/56; PULSE 65; RESP 15; O2SAT 98
[2017-08-21 15:01] VITALS: BP 117/61; PULSE 70; RESP 12; O2SAT 100
--- NOTE | 2017-08-21 15:07 | PCM.ANEP1 ---
Post Anesthesia PACU Phase 1 Assessment Vital Signs Vital Signs Date Time Temp Pulse Resp B/P Pulse Ox O2 Delivery O2 Flow Rate FiO2 08/21/17 12:26 36.3 65 15 105/56 98 Room Air Anesthetic Administered: GA Level of Alertness: Awake, talking SAVAGE's with Equal Strength: Yes Pain: No Nausea or Vomiting: No CV Function & Hydration Stable: Yes Airway Device: Oxygen Delivery: Simple Mask Lungs: Clear to Auscultation PACU Phase 2 Assessment Complications: No Follow up Care: No Patient Instructions Provided: Yes Helga Gonzalez MD Aug 21, 2017 15:07
[2017-08-21 15:10] VITALS: BP 107/62; PULSE 67; RESP 12; O2SAT 100
[2017-08-21 15:20] VITALS: BP 108/58; PULSE 0; RESP 13; O2SAT 98
[2017-08-21 15:30] VITALS: BP 100/50; PULSE 68; RESP 12; O2SAT 98
[2017-08-21] MEDS: HYDROcodone-APAP 5-325 mg Tablet PO PRN ×2 (15:42→16:30)
[2017-08-21 16:15] VITALS: BP 106/56; PULSE 68; RESP 12; O2SAT 98
--- NOTE | 2017-08-21 17:24 | DRSVH ---
PROCEDURE: X-RAY RETROGRADE UROGRAPHY INDICATIONS: RIGHT KIDNEY STONE TECHNIQUE: 4 intra-operative images acquired by the Urology service. COMPARISON: Located Within [facility], CT, CT ABD PELVIS W CON, 07/09/2017, 22:26. [facility], CR, XR KUB, 07/21/2017, 14:22. Located Within [facility], CR, XR RETROGRADE UROGRAPHY, 07/10/2017, 1 5:36. FINDINGS: Exam limited to 4 submitted images. Within these limits, the left renal collecting system appears duplicated. There is mild left hydronephrosis. A 12 mm filling defect is seen in within the mid to upper pole suspicious for a retained stone. Ureteral stent was placed. IMPRESSION: 1. Duplicated left renal collecting system with mild hydronephrosis and probable small stone involvin g the mid to upper pole. 2. Ureteral stent placement. Dictated by: Yosvany MILLER Interpreted: Teja Farrar MD on 08/21/2017 at 15:14 Approved by: Teja Farrar M.D. on 08/21/2017 at 17:22
--- NOTE | 2017-08-22 21:25 | OP ---
[address] [address] OPERATIVE REPORT PATIENT: SD DURAND : 1970 MR#: [id number] ADMIT: 08/21/2017 JOB ID: [id number] DATE OF SURGERY: 08/21/2017 SURGEON: Spring Kaur MD. PROCEDURE: Left ureteroscopy with laser lithotripsy, basket stone extraction, left-sided double-J stent removal and replacement, and left-sided retrograde pyelogram. ANESTHESIA: General. 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 At the time of presentation with segmental pyelonephritis and sepsis. She was treated medically, discharged on culture-proven antibiotics and brought back for elective treatment of her stone. She had remained on Bactrim preop. This was specific to the bacteremia she had during her septic episode. POSTOPERATIVE DIAGNOSIS(ES): PROCEDURE IN DETAIL: After informed consent was obtained, the patient was brought to the operating room. She received IV antibiotics once again, culture specific preprocedure. SCDs were placed. Adequate general anesthesia was induced. She was carefully placed in the dorsal lithotomy position. All pressure points were carefully padded. Cleaned, prepped, and draped in the usual sterile fashion. Rigid scope was introduced in the patient's bladder. Distal end of the stent was seen. There were some reactive changes. Otherwise, was clear. The end of the stent was grasped and brought to the meatus. We passed a wire up through this into the upper pole moiety. The stone itself was seen now in the inferior portion of the upper pole moiety. We used an open-ended catheter and did a retrograde pyelogram on this side showing some mild hydronephrosis of the lower pole moiety of the kidney as suspected from some partial obstruction, perhaps from the stent itself. We then passed a second wire up through the open-ended catheter. This also went into the upper pole moiety. We then we passed a 14-[place] outer diameter ureteral access sheath up past the bifurcation and towards the upper pole moiety. We then used the digital ureteroscope, advanced this through the access sheath and up into the patient's upper pole. Stone was readily visible in the dependent portion. A 270 micron fiber was used to break it up to adjusted fragments of less than 1-2 mm. A few other small fragments were brought out to be handed off for stone analysis. At termination of the procedure, there were no fragments larger than above-mentioned left inside the patient's kidney. There was minimal bleeding. She tolerated the procedure very well. The ureter itself was cleared while removing the access sheath. The 2nd wire had remained outside of the access sheath as the safety wire throughout the course of the case and then we used this to backload through the rigid cystoscope, replaced a 6-[place] x 26 cm double-J stent over the wire through the scope under direct visual guidance for the distal end, fluoroscopic guidance for the proximal end. There was a good curl in the upper pole moiety of the renal pelvis and a curl in patient's bladder. Bladder itself was irrigated out. A few small clots were removed, drained. She was given a B and O suppository. Tolerated the procedure very well. Awakened, taken in stable condition to the postanesthesia care unit.
== END | disposition home or self-care (01) ==
LOC: SAS 12:05
PROVIDERS: ATTEND Urology
DX: N20.0 Calculus of kidney (principal); I95.9 Hypotension, unspecified; Q62.5 Duplication of ureter; F17.210 Nicotine dependence, cigarettes, uncomplicated; Z87.440 Personal history of urinary (tract) infections
CPT/HCPCS: 52356; 74420; 82360; C2617; J2370; J2704; J3010; J7120; Q9967